=== PATIENT | female | born 1970 | race Caucasian/White ===

== ENCOUNTER 2018-05-06 01:51 | Outpatient (CLI) | payer MEDICAID, SELFPAY ==
[2018-05-06 11:26] LABS: Prothrombin Time 45.2 sec (9.3-10.8)
[2018-05-06 11:53] LABS: INR 4.9 (1.0-3.5)
== END 2018-05-06 02:11 ==
PROVIDERS: PCP Family Medicine; Visit Provider Family Medicine
DX: I82.811 Embolism and thrombosis of superficial veins of right lower extremity (principal); Z79.01 Long term (current) use of anticoagulants
CPT/HCPCS: 36415; 85610

== ENCOUNTER 2018-05-09 12:10 | Outpatient (CLI) | payer MEDICAID, SELFPAY ==
[2018-05-09 13:24] LABS: INR 1.5 (1.0-3.5); Prothrombin Time 14.4 sec (9.3-10.8)
== END 2018-05-09 12:30 ==
PROVIDERS: PCP Family Medicine; Visit Provider Family Medicine
DX: I82.811 Embolism and thrombosis of superficial veins of right lower extremity (principal); Z79.01 Long term (current) use of anticoagulants
CPT/HCPCS: 85610

== ENCOUNTER 2018-08-22 19:21 | Emergency (ER) | payer MEDICAID, SELFPAY ==
[2018-08-22] VITALS (21 sets, daily range): BP systolic 122–189; BP diastolic 54–88; PULSE 66–82; RESP 11–35; TEMP 37; O2SAT 93–98
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
[2018-08-22] MEDS: HYDROmorphone 2 MG/ML VIAL 1 MG IV (20:12)
[2018-08-22] MEDS: Normal Saline Flush 10 ML SYR IVP (20:13)
[2018-08-22] MEDS: Normal Saline 1,000 ML 125 ML IV (20:13)
[2018-08-22 20:27] LABS: Abs Immature Grans 0.02 k/cumm (0.0-0.09); Absolute Basophil Count 0.02 k/cumm (0.0-0.2); Absolute Eosinophil Count 0.12 k/cumm (0.0-0.7); Absolute Lymphocyte Count 2.42 k/cumm (1.2-3.4); Absolute Monocyte Count 0.44 k/cumm (0.11-0.7); Absolute Neutrophil Count 6.33 k/cumm (1.2-6.7); Basophils % 0.2; Eosinophils % 1.3; HCT 40.1 % (36.0-46.0); HGB 13.7 g/dL (12.0-15.5); Immature Grans % 0.2; Lymphocytes % 25.9; Mean Corp. HGB Concentration 34.2 g/dL (32.0-36.0); Mean Corpuscular Hemoglobin 30.7 pg (27.0-33.0); Mean Corpuscular Volume 89.9 fL (80-95); Mean Platelet Volume 10.7 fL (8.0-11.0); Monocytes % 4.7; Neutrophils % 67.7; Platelet Count 195 x1000/uL (130-400); RBC 4.46 m/cumm (4.00-5.20); RBC Distribution Width 13.6 % (11.7-14.6); White Blood Cell Count 9.35 k/cumm (4.4-10.8)
[2018-08-22 20:36] LABS: INR 2.8 (0.9-1.1)
[2018-08-22 20:38] LABS: ALT 19 U/L (12-78); AST 16 U/L (15-37); Albumin 3.5 g/dL (3.4-5.0); Alkaline Phosphatase 116 U/L (46-116); Anion Gap 10.6 mmol/L (3-11); BUN 11 mg/dL (7-18); Bilirubin, Total 0.3 mg/dL (0.2-1.0); CO2 26.4 mmol/L (21.0-32.0); Calcium 8.7 mg/dL (8.5-10.1); Chloride 103 mmol/L (98-107); Glucose 95 mg/dL (70-100); Potassium 3.6 mmol/L (3.5-5.1); Sodium 140 mmol/L (136-145); Total Protein 7.5 g/dL (6.4-8.2)
[2018-08-22 20:42] LABS: Troponin I < 0.02 ng/mL (0.00-0.06)
[2018-08-22 20:52] LABS: D-Dimer 96 ng/mlFEU (<500)
--- NOTE | 2018-08-22 20:57 | DI.CT_ITS ---
SYMPTOM/DIAGNOSIS: RT ARM PAIN, H/O ARTERY STENT, SUBCLAV, ? VENOUS RIGHT ARM CT AND CTA THORAX: CT angiography was performed with multi slice acquisition and multi planar and 3D reconstruction. There is no evidence of pulmonary embolism or aortic dissection. There is a right subclavian vein stent. The exam was performed during the arterial phase and the patency of the stent could not be evaluated. The stent appears to be compressed between the first rib and the clavicle. There is mild underlying emphysema and dependent changes in the lungs. There is no evidence of infiltrate, pleural or pericardial effusion. The heart size is normal. No adenopathy or pulmonary nodules are identified. Degenerative changes are seen in the spine. IMPRESSION: No evidence of pulmonary embolism. There is a right subclavian vein stent which appears compressed between the first rib and clavicle. Ultrasound could be performed for further evaluation of patency of the stent.
[2018-08-22] MEDS: Omnipaque 350 MG/ML 100 ML BTL IJ (22:00)
--- NOTE | 2018-08-22 22:26 | DI.VRAD_ITS ---
EXAM: CT Right Angiography Chest With Contrast EXAM DATE/TIME: 08/22/2018 9:24 PM CLINICAL HISTORY: 47 years old, female; Pain; Upper arm; Right; Prior surgery; Surgery date: 6+ months; Surgery type: Subclavian stent about 5 years ago; Patient HX: Right arm pain HX of (? Venous) artery stent subclavian TECHNIQUE: Right Axial computed tomographic angiography images of the chest with intravenous contrast using CT angiography protocol. Coronal and sagittal reformatted images were created and reviewed. CONTRAST: 100 ml of Omnipaque 350 administered intravenously. COMPARISON: CT CHEST WITHOUT/WITH CONTRAST 01/26/2012 5:46 PM FINDINGS: Pulmonary arteries: No filling defect to suggest pulmonary embolism. Aorta: Normal. No aortic aneurysm. No aortic dissection. Great vessels off aortic arch: There is a right subclavian vein stent, noting that the arterial timing of the contrast bolus is not optimal for evaluation of patency of the stent. The stent is compressed between the first rib, which is a cervical rib, and the clavicle. Lungs: There is paraseptal emphysema dependent changes. No focal pulmonary consolidation. Mild mosaic attenuation in the lung bases, left greater than right likely represents air trapping. Pleural space: Normal. No pneumothorax. No pleural effusion. Heart: Normal. No cardiomegaly. No pericardial effusion. Lymph nodes: Unremarkable. No enlarged lymph nodes. Bones/joints: The patient's right arm and head were included within the [id number]. Mild multilevel degenerative changes of the spine. Soft tissues: Unremarkable. IMPRESSION: 1. No evidence of pulmonary embolism. 2. Right subclavian vein stent compressed between the first rib and clavicle, noting that evaluation for patency of the lumen is limited on this study. Ultrasound may provide further evaluation for patency if clinically warranted. 3. Mild paraseptal emphysema and air-trapping in the lung bases. No focal pulmonary consolidation. Dictated and Authenticated by: Luana Plaza MD. Ordering:AUGUSTO Courtney MD
--- NOTE | 2018-08-22 22:39 | DI.VRAD_ITS ---
Addendum created by Luana Plaza MD on 08/22/2018 10:39:28 PM EST Findings were discussed with JOSE ERVIN at 08/22/2018 10:36 PM EST. This addendum also serves to add additional findings in the right upper extremity arterial runoff portion of the study. There is no evidence of right upper extremity arterial occlusion, critical stenosis, or dissection. The right upper extremity soft tissues and osseous structures are within normal limits. Dr. Ervin states that the patient has a normal vascular exam and negative d-dimer. The remainder of the findings and impression remain unchanged. Initial report created on 08/22/2018 10:26:21 PM EST EXAM: CT Right Angiography Chest With Contrast EXAM DATE/TIME: 08/22/2018 9:24 PM CLINICAL HISTORY: 47 years old, female; Pain; Upper arm; Right; Prior surgery; Surgery date: 6+ months; Surgery type: Subclavian stent about 5 years ago; Patient HX: Right arm pain HX of (? Venous) artery stent subclavian TECHNIQUE: Right Axial computed tomographic angiography images of the chest with intravenous contrast using CT angiography protocol. Coronal and sagittal reformatted images were created and reviewed. CONTRAST: 100 ml of Omnipaque 350 administered intravenously. COMPARISON: CT CHEST WITHOUT/WITH CONTRAST 01/26/2012 5:46 PM FINDINGS: Pulmonary arteries: No filling defect to suggest pulmonary embolism. Aorta: Normal. No aortic aneurysm. No aortic dissection. Great vessels off aortic arch: There is a right subclavian vein stent, noting that the arterial timing of the contrast bolus is not optimal for evaluation of patency of the stent. The stent is compressed between the first rib, which is a cervical rib, and the clavicle. Lungs: There is paraseptal emphysema dependent changes. No focal pulmonary consolidation. Mild mosaic attenuation in the lung bases, left greater than right likely represents air trapping. Pleural space: Normal. No pneumothorax. No pleural effusion. Heart: Normal. No cardiomegaly. No pericardial effusion. Lymph nodes: Unremarkable. No enlarged lymph nodes. Bones/joints: The patient's right arm and head were included within the [id number]. Mild multilevel degenerative changes of the spine. Soft tissues: Unremarkable. IMPRESSION: 1. No evidence of pulmonary embolism. 2. Right subclavian vein stent compressed between the first rib and clavicle, noting that evaluation for patency of the lumen is limited on this study. Ultrasound may provide further evaluation for patency if clinically warranted. 3. Mild paraseptal emphysema and air-trapping in the lung bases. No focal pulmonary consolidation. Dictated and Authenticated by: Luana Plaza MD. Ordering:AUGUSTO Courtney MD
[2018-08-22] MEDS: Ketorolac 30 MG/ML VIAL 7.5 MG IVP (22:47)
[2018-08-23] VITALS: PULSE 64; RESP 14; O2SAT 98
[2018-08-23 00:09] LABS: Troponin I < 0.02 ng/mL (0.00-0.06)
[2018-08-23 00:10] VITALS: PULSE 66; RESP 17; O2SAT 99
[2018-08-23 00:20] VITALS: PULSE 65; RESP 15; O2SAT 99
[2018-08-23 00:24] VITALS: BP 157/69; PULSE 63
[2018-08-23 00:37] VITALS: TEMP 36.6
== END 2018-08-23 00:45 | disposition home or self-care (01) ==
PROVIDERS: Emergency Medicine; Emergency Provider Student in an Organized Health Care Education/Training Program; PCP Family Medicine
DX: M79.601 Pain in right arm (principal); R07.9 Chest pain, unspecified; R20.2 Paresthesia of skin; Z95.828 Presence of other vascular implants and grafts; Z86.718 Personal history of other venous thrombosis and embolism; Z79.01 Long term (current) use of anticoagulants
CPT/HCPCS: 36415; 71275; 80053; 93005; 96361; 96374; 96375; 99285; 83735; 84484; 85025; 85379; 85610; 93010; J1885; J3490

== ENCOUNTER 2018-10-07 02:19 | Outpatient (CLI) | payer MEDICAID, SELFPAY ==
[2018-10-07 11:07] LABS: INR 1.6 (0.9-1.1); Prothrombin Time 16.4 sec (9.3-11.0)
== END 2018-10-07 02:39 ==
PROVIDERS: PCP Family Medicine; Visit Provider Family Medicine
DX: I82.811 Embolism and thrombosis of superficial veins of right lower extremity (principal); Z79.01 Long term (current) use of anticoagulants
CPT/HCPCS: 36415; 85610

== ENCOUNTER 2018-10-26 11:09 | Outpatient (CLI) | payer MEDICAID, SELFPAY ==
--- NOTE | 2018-10-26 11:03 | DI.RAD_ITS ---
SYMPTOMS/DIAGNOSIS: PAIN RIGHT KNEE: AP and lateral projections of the right knee reveal no bony, joint or soft tissue abnormality.
== END 2018-10-26 11:29 ==
PROVIDERS: PCP Family Medicine; Visit Provider Physician Assistant Surgical
DX: M25.561 Pain in right knee (principal)
CPT/HCPCS: 73560

== ENCOUNTER 2019-02-15 11:32 | Outpatient (CLI) | payer MEDICAID, SELFPAY ==
--- NOTE | 2019-02-15 12:30 | DI.US_ITS ---
SYMPTOM/DIAGNOSIS: PAIN WITH LIFTING 5 DAYS AGO, LT ING PAIN, LLQ PAIN R10.32 LEFT INGUINAL ULTRASOUND: Sonographic evaluation of the left inguinal region was performed. No sonographic evidence to suggest a left inguinal hernia are seen. There is lymph node seen in the left inguinal region. They have a benign appearance with hyperechoic hilum. The largest measures 2.1 x 0.7 x 1.3 cm. IMPRESSION: No sonographic findings to suggest a left inguinal hernia.
== END 2019-02-15 11:52 ==
PROVIDERS: PCP Family Medicine; Visit Provider Family Medicine
DX: R10.32 Left lower quadrant pain (principal)
CPT/HCPCS: 76857

== ENCOUNTER 2019-08-27 17:35 | Emergency (ER) | payer MEDICAID, SELFPAY ==
[2019-08-27] VITALS (36 sets, daily range): BP systolic 118–233; BP diastolic 62–212; PULSE 64–110; RESP 11–39; TEMP 36.5–37.4; O2SAT 91–98
[2019-08-27] MEDS: Aspirin 81 MG CHEW CH (18:02)
[2019-08-27] MEDS: Ondansetron 4 MG/2 ML VIAL IVP (18:11)
[2019-08-27] MEDS: LORazepam 2 MG/ML VIAL (18:13)
--- NOTE | 2019-08-27 18:19 | DI.RAD_ITS ---
EXAM: XR PORTABLE CHEST AP INDICATION: Chest pain. COMPARISON: CHEST 2 VIEWS PA,LAT from 12/15/2012 TECHNIQUE: 2D digital imaging was performed. FINDINGS: The heart size and pulmonary vasculature are within normal limits. The lungs are clear. There is no pleural effusion or pneumothorax. There is again seen a stent in the region of the right subclavian vessels. IMPRESSION: No acute pulmonary process.
[2019-08-27 18:22] LABS: Abs Immature Grans 0.03 k/cumm (0.0-0.09); Absolute Basophil Count 0.02 k/cumm (0.0-0.2); Absolute Lymphocyte Count 2.33 k/cumm (1.2-3.4); Basophils % 0.1; Eosinophils % 0.1; HCT 43.6 % (36.0-46.0); HGB 15.6 g/dL (12.0-15.5); Immature Grans % 0.2 %; Lymphocytes % 14.2; Mean Corp. HGB Concentration 35.8 g/dL (32.0-36.0); Mean Corpuscular Hemoglobin 31.5 pg (27.0-33.0); Mean Corpuscular Volume 88.1 fL (80-95); Neutrophils % 81.4; Platelet Count 254 x1000/uL (130-400); RBC 4.95 m/cumm (4.00-5.20); RBC Distribution Width 13.6 % (11.7-14.6); White Blood Cell Count 16.44 k/cumm (4.4-10.8)
[2019-08-27 18:23] LABS: Absolute Eosinophil Count 0.02 k/cumm (0.0-0.7); Absolute Monocyte Count 0.66 k/cumm (0.11-0.7); Absolute Neutrophil Count 13.38 k/cumm (1.2-6.7)
--- NOTE | 2019-08-27 18:23 | DI.VRAD_ITS ---
PROCEDURE INFORMATION: Exam: XR Chest, 1 View Exam date and time: 08/27/2019 18:15 Age: 48 years old Clinical indication: Chest pain; Type not specified TECHNIQUE: Imaging protocol: XR of the chest Views: 1 view. COMPARISON: CR CHEST 2 VIEWS PA,LAT 12/15/2012 22:07 FINDINGS: Lungs: No consolidation. Pleural space: No significant pleural effusion. No pneumothorax. Heart/Mediastinum: No cardiomegaly. Vasculature: Vascular stent again seen in the right subclavian region. Bones/joints: No acute fracture. Benign-appearing chronic osteolysis distal left clavicle. IMPRESSION: Negative portable chest. Dictated and Authenticated by: Rosalina Alvarez MD. Ordering:DEWAYNE Laurent MD
[2019-08-27 18:36] LABS: ALT 20 U/L (14-59); AST 16 U/L (15-37); Albumin 4.1 g/dL (3.4-5.0); Alkaline Phosphatase 102 U/L (46-116); Anion Gap 14.9 mmol/L (3-11); BUN 7 mg/dL (7-18); Bilirubin, Total 0.4 mg/dL (0.2-1.0); CO2 21.1 mmol/L (21.0-32.0); CREATININE 0.83 mg/dL (0.55-1.02); Calcium 9.5 mg/dL (8.5-10.1); Chloride 104 mmol/L (98-107); Glucose 110 mg/dL (74-106); Magnesium 1.7 mg/dL (1.8-2.4); Potassium 3.8 mmol/L (3.5-5.1); Sodium 140 mmol/L (136-145); Troponin I < 0.05 ng/Ml (<0.06)
[2019-08-27 19:07] LABS: D-Dimer 117 ng/mlFEU (<500)
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
[2019-08-27] MEDS: Omnipaque 350 MG/ML 100 ML BTL IJ (19:48)
--- NOTE | 2019-08-27 19:53 | DI.CT_ITS ---
EXAM: CT THORAX CTA CLINICAL HISTORY: Left sided chest pain. TECHNIQUE: Imaging Protocol: Axial CT angiography was performed with multi-slice acquisition and mu lti-planar and/or 3D reconstructions. CONTRAST MATERIAL: Intravenous: Omnipaque 350 Contrast volume:structured data in ml COMPARISON: CT THORAX CTA from 08/22/2018 FINDINGS: Pulmonary Arteries: No filling defects are seen in the central pulmonary arteries to suggest pulmonar y embolic disease. Tracheobronchial tree: Patent where visualized. Mediastinum and Lary: No dominant adenopathy or fluid collection. Pulmonary parenchyma: No consolidation or dominant measurable mass. No architectural distortion. Pleura: No effusion or pneumothorax. Heart: The heart is not dilated. No coronary artery calcifications are seen. No evidence of right hea rt strain. Aorta: Thoracic aorta non-dilated. No aneurysm or dissection. Upper abdomen: Unremarkable. Bones: Normal. Tubes, Catheters, and Lines: There is again seen a stent in the right subclavian vein. It appears un changed. IMPRESSION: No definite pulmonary embolism, thoracic aortic dissection or aneurysm. Please see the above discuss ion for complete details. DATA REPOSITORY: All CT scans at this facility are submitted to the National Radiology Data Registry (NRDR) Dose Index Registry (DIR) with the [employer] (ACR). RADIATION OPTIMIZATION: All CT scans at this facility use at least one of these dose optimization te chniques: automated exposure control; mA and/or kV adjustment per patient size (includes targeted exa ms where dose is matched to clinical indication); or iterative reconstruction.
--- NOTE | 2019-08-27 20:09 | DI.VRAD_ITS ---
PROCEDURE INFORMATION: Exam: CT Angiography Chest With Contrast Exam date and time: 08/27/2019 19:36 Age: 48 years old Clinical indication: Left-sided chest pain; Prior surgery; Surgery date: 6+ months; Surgery type: Stent for thrombus RT subclavien vein 2011; Patient HX: Left sided chest pain TECHNIQUE: Imaging protocol: Computed tomographic angiography of the chest with intravenous contrast. 3D rendering: MIP and/or 3D reconstructed images were created by the technologist. Radiation optimization: All CT scans at this facility use at least one of these dose optimization techniques: automated exposure control; mA and/or kV adjustment per patient size (includes targeted exams where dose is matched to clinical indication); or iterative reconstruction. Contrast material: OMNI 350; Contrast volume: 64 ml; Contrast route: IV; COMPARISON: CT THORAX CTA 08/22/2018 21:22 FINDINGS: Pulmonary arteries: The pulmonary artery contrast bolus is suboptimal for assessment for filling defects. The main and proximal lobar pulmonary arteries are patent. Great vessels off aortic arch: A right subclavian venous stent is poorly seen however appears compressed between the clavicle and the 1st rib probably similar to the previous study. Aorta: No aortic aneurysm. No aortic dissection. Lungs: There are a few very tiny pulmonary nodules which are statistically likely benign. Follow-up as per institutional protocol. No airspace consolidation. Pleural space: No pneumothorax. No pleural effusion. Heart: No cardiomegaly. No pericardial effusion. Lymph nodes: No enlarged lymph nodes. Bones/joints: No acute fracture. Soft tissues: No suspicious lesions. IMPRESSION: No acute findings. Limited assessment for pulmonary artery emboli. Dictated and Authenticated by: Rosalina Alvarez MD. Ordering:DEWAYNE Laurent MD
[2019-08-27 20:48] LABS: HCT 38.1 % (36.0-46.0); HGB 13.2 g/dL (12.0-15.5); Mean Corp. HGB Concentration 34.6 g/dL (32.0-36.0); Mean Corpuscular Hemoglobin 30.9 pg (27.0-33.0); Mean Corpuscular Volume 89.2 fL (80-95); Mean Platelet Volume 10.1 fL (8.0-11.0); Platelet Count 170 x1000/uL (130-400); RBC 4.27 m/cumm (4.00-5.20); RBC Distribution Width 13.4 % (11.7-14.6); White Blood Cell Count 10.38 k/cumm (4.4-10.8)
[2019-08-27 21:02] LABS: Troponin I < 0.05 ng/Ml (<0.06)
== END 2019-08-27 21:45 | disposition home or self-care (01) ==
PROVIDERS: Emergency Provider Registered Nurse Emergency; PCP Family Medicine
DX: R07.9 Chest pain, unspecified (principal); F43.8 Other reactions to severe stress; R11.2 Nausea with vomiting, unspecified; Z63.9 Problem related to primary support group, unspecified
CPT/HCPCS: 36415; 71275; 80053; 85027; 93005; 99285; 71045; 83735; 84484; 85025; 85379; 93010; 99284; J2060; J2405; J3490

== ENCOUNTER 2019-09-14 00:27 | Outpatient (CLI) | payer MEDICAID, SELFPAY ==
--- NOTE | 2019-09-14 | ETT_ITS ---
APPROVED REPORT Exam: Exercise Treadmill Patient Location: Out-Patient Room/Bed: Stress Nurse: Alisha Vallejo RN BMI: 31.24 Baseline Rhythm: Sinus Rhythm Indications: Chest Pain Medical History Cardiac Medications: Aspirin. Magnesium. Warfarin., Allergies: Codeine. Penicillins. Topiramate. Cardiac Risk Factors: FHX of CAD, Smoking, Asthma Pretest Chest Pain Characteristics: Non-exertional Chest pain Exercise History: Physically active Physical Disabilities: Right Knee pain Lung Sounds: Clear to auscultation Heart Sounds: Regular Stress Test Details Test: Exercise stress testing was performed using a Ramy protocol. Nuclear Acquisition: Rest Tc-99m/Stress Tc-99m 1 day Rest Stress HR Resting HR Supine: 68 bpm Max Heart Rate (APMHR): 172 bpm Resting HR Standin bpm Target HR (85% APMHR): 146 bpm Max HR Achieved: 158 bpm % of APMHR: 91 HR response to stress: Normal HR response to stress BP Resting BP Supine: 130/70 mmHg Resting BP Standin/74 mmHg Max BP: 190/80 mmHg Recovery BP: 130/76 mmHg BP response to stress: Normal blood pressure response to stress. ECG Resting ECG: Sinus Rhythm Stress ECG: Sinus Tachycardia ST Change: No significant ST segment changes Comment: Rare pvc. Recovery ECG: Sinus Rhythm Recovery ST Change: No significant ST segment changes Clinical Reason for Termination: Right knee pain. Stress Symptoms: Chest pain, General Fatigue Exercise duration: 6 min41 sec Highest Stage Reached: Stage 2: 2.5 mph at 12% grade. Exercise capacity: 8.06 METs Functional Capacity: Average Capacity Stress ECG Conclusion 1. Good exercise tolerance of 8.06 METS limited by fatigue. 2. Normal heart rate and blood pressure response to exercise 3. Patient achieved 91% of predicted heart rate for age. Electrocardiographically the test was negat courtney for myocardial ischemia. There were no significant dysrhythmias Protocol Used: Ramy Protocol Stress Test Summary STAGE Time (mins) Speed (mph) Grade (%) HR BP SYMPTOMS METS Supine 68 130/70 Standing 75 132/74 1 3 1.7 10 114 150/80 4.6 2 6 2.5 12 138 162/80 7 3 9 3.4 14 152 10.2 1 min recovery 108 190/80 3 min recovery 74 140/80 6 min recovery 73 130/76
== END 2019-09-14 00:47 ==
PROVIDERS: PCP Family Medicine; Visit Provider Registered Nurse Emergency
DX: R07.9 Chest pain, unspecified (principal); J45.909 Unspecified asthma, uncomplicated; F17.200 Nicotine dependence, unspecified, uncomplicated
CPT/HCPCS: 93017

== ENCOUNTER 2020-12-16 21:14 | Emergency (ER) | payer MEDICAID, SELFPAY ==
[2020-12-16] VITALS (21 sets, daily range): BP systolic 108–132; BP diastolic 56–95; PULSE 74–119; RESP 13–28; O2SAT 89–100
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
--- NOTE | 2020-12-16 21:45 | RT.EKG_ITS ---
APPROVED REPORT Exam: Resting ECG Reason for Exam: N/V Patient Location: E HR:77 bpm ECG Measurements Heart Rate [address] 146 P 76 QRSd 80 QRS 73 QT 397 T 53 QTc 451 Conclusion Sinus rhythm...normal P axis, V-rate 60- 99
[2020-12-16] MEDS: LORazepam 2 MG/ML VIAL 1 MG IVP (22:02)
[2020-12-16] MEDS: Normal Saline 1,000 ML 1000 ML IV (22:02)
[2020-12-16] MEDS: Pantoprazole 40 MG VIAL IVP (22:03)
[2020-12-16] MEDS: Ondansetron O.D.T. 4 MG TABEF PO (22:03)
[2020-12-16 22:40] LABS: Abs Immature Grans 0.04 10^3/uL (0.0-0.06); Absolute Basophil Count 0.03 10^3/uL (0.0-0.2); Absolute Eosinophil Count 0.07 10^3/uL (0.0-0.7); Absolute Lymphocyte Count 3.04 10^3/uL (1.2-3.4); Absolute Monocyte Count 0.57 10^3/uL (0.1-0.8); Absolute Neutrophil Count 6.28 10^3/uL (1.2-6.7); Basophils % 0.3; Eosinophils % 0.7; HCT 45.1 % (36.0-46.0); HGB 15.5 g/dL (11.2-15.7); Immature Grans % 0.4; Lymphocytes % 30.3; MCH 30.8 pg (27.0-33.0); MCHC 34.4 % (32.0-36.0); MCV 89.7 fL (80-95); MPV 11.3 fL (8.0-11.0); Monocytes % 5.7; Neutrophils % 62.6; Nucleated RBC 0 %; Platelet Count 250 10^3/uL (130-400); RBC 5.03 10^6/uL (3.93-5.22); RDW 12.4 % (11.7-14.6); RDW-SD 40.8 fL; WBC 10.03 10^3/uL (4.4-10.8)
[2020-12-16 22:55] LABS: Prothrombin Time 10.3 sec (9.3-11.0)
[2020-12-16 23:00] LABS: ALT 26 U/L (14-59); AST 20 U/L (15-37); Albumin 4.1 g/dL (3.4-5.0); Alkaline Phosphatase 94 U/L (46-116); Anion Gap 13.4 mmol/L (3-11); BUN 8 mg/dL (7-18); Bilirubin, Total 0.4 mg/dL (0.2-1.0); CO2 23.6 mmol/L (21.0-32.0); Calcium 9.3 mg/dL (8.5-10.1); Chloride 108 mmol/L (98-107); Estimated GFR 58.69 (mL/min/1.73m2); Glucose 119 mg/dL (74-106); Lipase 173 U/L (73-393); Potassium 3.7 mmol/L (3.5-5.1); Sodium 145 mmol/L (136-145)
--- NOTE | 2020-12-16 23:00 | DI.CT_ITS ---
Exam(s) CT ABDOMEN PELVIS CTA EXAM: CT ABDOMEN PELVIS CTA CLINICAL HISTORY: sudden onset of pain, hx of DVT. TECHNIQUE: Imaging Protocol: Axial CT angiography was performed with multi-slice acquisition and m ulti-planar and/or 3D reconstructions. CONTRAST MATERIAL: Intravenous: Omnipaque 350 Contrast volume:100 ml Oral: / no COMPARISON: CT CT THORAX CTA from 08/27/2019 FINDINGS: Vascular Structures: Inferior mesenteric artery not seen. Celiac [place]/SMA: No evidence of stenosis. Renal Arteries: No evidence of stenosis. There is a single renal artery perfusing each kidney. Aorta: No aneurysm. No dissection. Minimal atherosclerotic changes distally. Pelvis: Iliac Arteries: No evidence of stenosis. Common Femoral Arteries: No evidence of stenosis. Soft Tissues: Lung bases:Normal. Liver: Normal density. No measurable mass. Gallbladder and biliary tract: No radiodense calculus or dilation. Reproductive: Retroverted uterus. Pancreas: Normal density, no abnormal calcifications or inflammatory process. Spleen: Normal. Kidneys: Normal size, contour and axis. No radiodense stones or obstructive uropathy. No masses seen. Adrenal glands: No masses seen. Bladder: Symmetric distention, no gross wall thickening. Bowel: No obstruction or bowel wall thickening. Peritoneal cavity: No ascites, collection or mesenteric inflammatory response. Bones: Within normal limits. Lymph nodes: Within normal limits. IMPRESSION: Mild atherosclerotic changes in the lower abdominal aorta. No evidence of mesenteric ischemia or oth er acute abnormality. RADIATION DOSE DELIVERED: 1,363.49mGy.cm Total DLP DATA REPOSITORY: All CT scans at this facility are submitted to the National Radiology Data Registry (NRDR) Dose Index Registry (DIR) with the [employer] (ACR). RADIATION OPTIMIZATION: All CT scans at this facility use at least one of these dose optimization te chniques: automated exposure control; mA and/or kV adjustment per patient size (includes targeted exa ms where dose is matched to clinical indication); or iterative reconstruction.
[2020-12-16 23:01] LABS: ETHANOL BLOOD < 3.0 mg/dL (<3); Troponin I < 0.05 ng/mL (<0.06)
[2020-12-16] MEDS: Omnipaque 350 MG/ML 100 ML BTL IJ (23:23)
[2020-12-16] MEDS: Normal Saline - Diluent 50 ML VIAL IV (23:51)
[2020-12-16] MEDS: Normal Saline Flush 10 ML SYR IVP (23:52)
[2020-12-16] MEDS: Lactated Ringers 1,000 ML 1000 ML IV (23:53)
[2020-12-17] VITALS (12 sets, daily range): BP systolic 118–122; BP diastolic 57–69; PULSE 73–82; RESP 15–26; O2SAT 93–98
--- NOTE | 2020-12-17 00:48 | DI.VRAD_ITS ---
Addendum created by Octavio Son DO on 12/17/2020 12:58:26 AM EDT: Case discussed with Dr. Marti at approximately 12:55 a.m. on December 17. Findings regarding inferior mesenteric artery clarified. Initial report created on 12/17/2020 12:48:09 AM EDT: PROCEDURE INFORMATION: Exam: CTA Abdomen and Pelvis With Contrast Exam date and time: 12/16/2020 11:10 PM Age: 50 years old Clinical indication: Abdominal pain; Generalized; Prior surgery; Surgery date: 6+ months; Surgery type: Apendectomy, tubal ligation and bso; Patient HX: Sudden onset of pain, HX of dvt; Additional info: Mesenteric ischemia protocol per provider TECHNIQUE: Imaging protocol: Computed tomographic angiography of the abdomen and pelvis with contrast material. 3D rendering (Not supervised by radiologist): MIP and/or 3D reconstructed images were created by the technologist. Radiation optimization: All CT scans at this facility use at least one of these dose optimization techniques: automated exposure control; mA and/or kV adjustment per patient size (includes targeted exams where dose is matched to clinical indication); or iterative reconstruction. Contrast material: OMNIPAQUE 350; Contrast volume: 100 ml; Contrast route: INTRAVENOUS (IV); COMPARISON: No relevant prior studies available. FINDINGS: Aorta: No aortic aneurysm or dissection. Celiac trunk and mesenteric arteries: No occlusion or significant stenosis in celiac axis or superior mesenteric artery. Opacified inferior mesenteric artery not identified. Renal arteries: No occlusion or significant stenosis. Right iliac arteries: No occlusion or significant stenosis. Left iliac arteries: No occlusion or significant stenosis. Liver: No mass. No portal venous gas. Gallbladder and bile ducts: Unremarkable. No calcified stones. No ductal dilation. Pancreas: Unremarkable. No mass. No ductal dilation. Spleen: Unremarkable. No splenomegaly. Adrenal glands: Unremarkable. No mass. Kidneys and ureters: Unremarkable. No solid mass. No hydronephrosis. Stomach and bowel: No dilated loops of small bowel or colonic dilatation. No pneumatosis. Appendix: Prior appendectomy. Intraperitoneal space: No free intraperitoneal gas. No ascites. Lymph nodes: Unremarkable. No enlarged lymph nodes. Urinary bladder: Unremarkable. No mass. Reproductive: Retroverted uterus. No ovaries demonstrated. Bones/joints: The spine demonstrates mild degenerative changes at multiple levels. Soft tissues: There is an uncomplicated fat-containing umbilical hernia. IMPRESSION: 1. No aortic aneurysm or dissection. 2. No mesenteric, renal or iliac artery stenoses. 3. Inferior mesenteric artery has not formed or is occluded. 4. Retroverted uterus. Dictated and Authenticated by: Octavio Son MD. Ordering:SILVANO Galdamez MD
--- NOTE | 2020-12-22 18:10 | NUR.NOTE ---
Boyfriend called stating that when she was in the ER Dr Marti called in a prescription for prevacid for her and when they called to check the pharmacy told them they did not have it. He states She has bad pain--per ER chart a RX for Prevacid was faxed to [facility] in [place]. Pharmacies are closed now --can buy Prevacid OTC or if her pain is worsening then she should come to the ER for an exam. Verbalizes understanding and will talk it over with DonParising Note:
== END 2020-12-17 01:50 | disposition home or self-care (01) ==
PROVIDERS: Physician Assistant; Emergency Provider Student in an Organized Health Care Education/Training Program; PCP Nurse Practitioner Family
DX: R11.2 Nausea with vomiting, unspecified (principal); Z91.14 Patient's other noncompliance with medication regimen
CPT/HCPCS: 36415; 80053; 83690; 93005; 96361; 96374; 96375; 99285; 74174; 80320; 83605; 83735; 84484; 85025; 85610; 85730; 93010; 99284; J2060; J3490

== ENCOUNTER 2020-12-23 10:44 | Emergency (ER) | payer MEDICAID, SELFPAY ==
[2020-12-23] VITALS (35 sets, daily range): BP systolic 100–233; BP diastolic 29–197; PULSE 70–126; RESP 11–27; TEMP 36.3; O2SAT 90–100
--- NOTE | 2020-12-23 10:45 | RT.EKG_ITS ---
APPROVED REPORT Exam: Resting ECG Reason for Exam: abdominal pain Patient Location: E HR:111 bpm ECG Measurements Heart Rate 111 AXIS ID 118 P 85 QRSd 79 QRS 75 QT 319 T 44 QTc 434 Conclusion Sinus tachycardia...rate> 99 Right atrial enlargement...P>0.25mV 2 lds or<-0.24mV aVR/aVL. No STEMI. I have reviewed and interpreted ECG and agree with software generated interpretation.
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
--- NOTE | 2020-12-23 11:18 | DI.CT_ITS ---
Exam(s) CT THORAX ABD/PEL CTA EXAM: CT THORAX ABD/PEL CTA CLINICAL HISTORY: epigastric pain, vomiting. TECHNIQUE: Imaging Protocol: Axial CT angiography was performed with multi-slice acquisition and m ulti-planar and/or 3D reconstructions. CONTRAST MATERIAL: Intravenous: Omnipaque 350 Contrast volume:100 mL Oral: No COMPARISON: CT CT ABDOMEN PELVIS CTA from 12/16/2020 FINDINGS: CHEST: Tracheobronchial tree: Patent where visualized. Pulmonary parenchyma: No consolidation or dominant measurable mass. No architectural distortion. Pulmonary Arteries: No evidence of filling defect to suggest pulmonary emboli. Mediastinum and Lary: No dominant adenopathy or fluid collection. Visualized thyroid: Unremarkable. Pleura: No effusion or pneumothorax. Heart: The heart is not dilated. No coronary artery calcifications are seen. No pericardial effusion. Aorta: Thoracic aorta non-dilated. Soft Tissues: Unremarkable. Bones: Degenerative changes in the thoracic and lumbar spine. ABDOMEN AND PELVIS: Abdomen: Celiac axis/mesenteric arteries: No evidence of occlusion or significant stenosis. Renal Arteries: No evidence of occlusion or significant stenosis. There is a single renal artery per fusing each kidney. Aorta: No evidence of occlusion or significant stenosis. No aneurysm or dissection. Mild atheroscl erosis. Pelvis: Iliac Arteries: No evidence of occlusion or significant stenosis. Mild atherosclerosis. Common Femoral Arteries: No evidence of occlusion or significant stenosis. ABDOMEN: Liver: There does appear to be decreased density of the liver suggesting fatty infiltration. No noemi urable mass. Portal, Superior Mesenteric, and Splenic Veins: Unremarkable. Gallbladder and Biliary Tract: No radiodense calculus or dilation. Pancreas: Normal density, no abnormal calcifications or inflammatory process. Spleen: Normal. Adrenals: No masses seen. Kidneys: Normal size, contour and axis. No radiodense stones or obstructive uropathy. No masses seen. Bowel: No evidence of obstruction. There is questionable thickening of the wall of the ascending and transverse colon. However, the bowel is not well distended and this may be artifactual. No pericol onic inflammatory changes are seen. No evidence of appendicitis. Few diverticula seen in the sigmoi d colon but no evidence of acute diverticulitis. Peritoneal Cavity: No ascites, collection or mesenteric inflammatory response. No free air. Lymph Nodes: Within normal limits. Bones: Unremarkable. Soft Tissues: Unremarkable. PELVIS: Bladder: Symmetric distention, no gross wall thickening. Reproductive Organs: Unremarkable as visualized. Lymph Nodes: Within normal limits. Bones: Within normal limits. IMPRESSION: 1. No acute pulmonary process. 2. No evidence of pulmonary embolus, thoracic aortic dissection or aneurysm. 3. No evidence of abdominal or pelvic arterial stenosis or aneurysm. 4. Question of thickening of the wall of the proximal colon. This may be artifactual due to underdis tention. No pericolonic inflammatory changes are seen. Early colitis or inflammatory bowel disease cannot be excluded. Please correlate clinically and follow-up as appropriate. RADIATION DOSE DELIVERED: 1,017mGy.cm Total DLP DATA REPOSITORY: All CT scans at this facility are submitted to the National Radiology Data Registry (NRDR) Dose Index Registry (DIR) with the [employer] (ACR). RADIATION OPTIMIZATION: All CT scans at this facility use at least one of these dose optimization te chniques: automated exposure control; mA and/or kV adjustment per patient size (includes targeted exa ms where dose is matched to clinical indication); or iterative reconstruction.
[2020-12-23 11:39] LABS: Abs Immature Grans 0.02 10^3/uL (0.0-0.06); Absolute Basophil Count 0.04 10^3/uL (0.0-0.2); Absolute Eosinophil Count 0.05 10^3/uL (0.0-0.7); Absolute Monocyte Count 0.45 10^3/uL (0.1-0.8); Absolute Neutrophil Count 7.15 10^3/uL (1.2-6.7); Basophils % 0.4; Eosinophils % 0.5; HCT 46.6 % (36.0-46.0); HGB 16.1 g/dL (11.2-15.7); Immature Grans % 0.2; Lymphocytes % 18.1; MCH 31.2 pg (27.0-33.0); MCHC 34.5 % (32.0-36.0); MCV 90.3 fL (80-95); MPV 10.9 fL (8.0-11.0); Monocytes % 4.8; Nucleated RBC 0 %; Platelet Count 238 10^3/uL (130-400); RBC 5.16 10^6/uL (3.93-5.22); RDW 12.5 % (11.7-14.6); RDW-SD 41.5 fL; WBC 9.41 10^3/uL (4.4-10.8)
[2020-12-23] MEDS: LORazepam 2 MG/ML VIAL 1 MG IVP (11:50)
[2020-12-23] MEDS: Ondansetron 4 MG/2 ML VIAL IVP (11:50)
[2020-12-23 11:52] LABS: PTT Activated 24.4 sec (21.0-27.5); Prothrombin Time 10.2 sec (9.3-11.0)
[2020-12-23 11:55] LABS: Lipase 50 U/L (73-393)
[2020-12-23] MEDS: Normal Saline 1,000 ML 1000 ML IV (11:56)
[2020-12-23] MEDS: FAMOTIDINE 20 MG/50 ML BAG 200 MG IVPB (11:57)
[2020-12-23 12:04] LABS: ALT 28 U/L (14-59); AST 17 U/L (15-37); Albumin 4.2 g/dL (3.4-5.0); Alkaline Phosphatase 101 U/L (46-116); Anion Gap 14.7 mmol/L (3-11); BUN 12 mg/dL (7-18); Bilirubin, Total 0.6 mg/dL (0.2-1.0); CO2 22.3 mmol/L (21.0-32.0); Calcium 9.6 mg/dL (8.5-10.1); Chloride 106 mmol/L (98-107); Estimated GFR 58.69 (mL/min/1.73m2); Glucose 101 mg/dL (74-106); Potassium 4.2 mmol/L (3.5-5.1); Sodium 143 mmol/L (136-145)
[2020-12-23 12:05] LABS: Troponin I < 0.05 ng/mL (<0.06)
[2020-12-23] MEDS: Omnipaque 350 MG/ML 100 ML BTL IV (12:42)
[2020-12-23] MEDS: Normal Saline - Diluent 50 ML VIAL IV (12:43)
[2020-12-23] MEDS: Normal Saline Flush 10 ML SYR IVP (12:44)
--- NOTE | 2020-12-23 14:16 | DI.VRAD_ITS ---
PROCEDURE INFORMATION: Exam: CTA Chest With Contrast Exam date and time: 12/23/2020 12:45 PM Age: 50 years old Clinical indication: Other: Epigastric pain, vomiting, R/O aaa, perf, gastritis, sbo TECHNIQUE: Imaging protocol: Computed tomographic angiography of the chest with contrast. 3D rendering (Not supervised by radiologist): MIP and/or 3D reconstructed images were created by the technologist. Radiation optimization: All CT scans at this facility use at least one of these dose optimization techniques: automated exposure control; mA and/or kV adjustment per patient size (includes targeted exams where dose is matched to clinical indication); or iterative reconstruction. Contrast material: OMNIPAQUE 350; Contrast volume: 100 ml; Contrast route: INTRAVENOUS (IV); COMPARISON: CT THORAX CTA 08/27/2019 7:53 PM FINDINGS: Pulmonary arteries: Normal. No pulmonary emboli. Aorta: Unremarkable. No aortic aneurysm. No aortic dissection. Lungs: Review of the lung windows shows minimal dependent subsegmental atelectasis. Pleural spaces: Unremarkable. No pneumothorax. No pleural effusion. Heart: Unremarkable. No cardiomegaly. No pericardial effusion. Lymph nodes: Unremarkable. No enlarged lymph nodes. Bones/joints: Unremarkable. No acute fracture. Soft tissues: Unremarkable. IMPRESSION: 1. No evidence of pulmonary embolism. 2. No evidence of aortic dissection or aneurysm. PROCEDURE INFORMATION: Exam: CTA Abdomen and Pelvis With Contrast Exam date and time: 12/23/2020 12:45 PM Age: 50 years old Clinical indication: Other: Epigastric pain, vomiting, R/O aaa, perf, gastritis, sbo TECHNIQUE: Imaging protocol: Computed tomographic angiography of the abdomen and pelvis with contrast material. 3D rendering (Not supervised by radiologist): MIP and/or 3D reconstructed images were created by the technologist. Radiation optimization: All CT scans at this facility use at least one of these dose optimization techniques: automated exposure control; mA and/or kV adjustment per patient size (includes targeted exams where dose is matched to clinical indication); or iterative reconstruction. Contrast material: OMNIPAQUE 350; Contrast volume: 100 ml; Contrast route: INTRAVENOUS (IV); COMPARISON: CT THORAX CTA 08/27/2019 7:53 PM FINDINGS: Aorta: No aortic aneurysm. No aortic dissection. Celiac trunk and mesenteric arteries: No occlusion or significant stenosis. Renal arteries: No occlusion or significant stenosis. Right iliac arteries: No occlusion or significant stenosis. Left iliac arteries: No occlusion or significant stenosis. Liver: The liver appears diffusely decreased in density. Gallbladder and bile ducts: Unremarkable. No calcified stones. No ductal dilation. Pancreas: Unremarkable. No mass. No ductal dilation. Spleen: Unremarkable. No splenomegaly. Adrenal glands: Unremarkable. No mass. Kidneys and ureters: Unremarkable. No solid mass. No hydronephrosis. Stomach and bowel: Diverticulosis is noted. No evidence of obstruction or diverticulitis. There is mild thickening of the wall of the ascending and transverse colon though it is not well distended. Appendix: No evidence of appendicitis. Intraperitoneal space: Unremarkable. No free air. No significant fluid collection. Lymph nodes: Unremarkable. No enlarged lymph nodes. Urinary bladder: Unremarkable. No mass. Reproductive: The uterus is retroverted and normal in appearance. No adnexal masses are seen. Bones/joints: No acute fracture. No dislocation. Soft tissues: Unremarkable. IMPRESSION: 1. Thickening of the wall of the colon. This may be artifact due to lack of distention. However, inflammatory bowel disease or other causes of colitis cannot be excluded. Follow-up with colonoscopy is advised to exclude any possibility of an underlying colonic lesion, if not done recently. 2. Fatty liver disease. 3. No evidence of arterial stenosis or aneurysm. Dictated and Authenticated by: Obed Mueller MD. Ordering:LOIS Garcia MD
[2020-12-23] MEDS: Lansoprazole 30 MG CAPCR 60 MG PO (15:01)
[2020-12-23] MEDS: Ondansetron O.D.T. 4 MG TABEF, 3 TABS/BTL PO (15:01)
--- NOTE | 2020-12-23 17:58 | NUR.NOTE ---
Nursing Note: faxed referral to surgical
== END 2020-12-23 15:15 | disposition home or self-care (01) ==
PROVIDERS: Emergency Provider Physician Assistant; PCP Nurse Practitioner Family
DX: R11.2 Nausea with vomiting, unspecified (principal); R10.13 Epigastric pain; R03.0 Elevated blood-pressure reading, without diagnosis of hypertension
CPT/HCPCS: 36415; 71275; 74177; 80053; 83690; 93005; 96361; 96365; 96375; 99285; 83735; 84484; 85025; 85610; 85730; 93010; J2060; J2405; J3490

== ENCOUNTER 2021-08-28 16:24 | Outpatient (CLI) | payer MEDICAID, SELFPAY ==
--- NOTE | 2021-08-28 09:00 | DI.RAD_ITS ---
Exam(s) XR FINGER LT RING EXAM: XR FINGER LT RING CLINICAL HISTORY: Trauma to left ring finger. S69.90XA INJURY TECHNIQUE: COMPARISON: CR LEFT HAND COMPLETE from 03/13/2015 FINDINGS: Three views were obtained. There is a nondisplaced fracture of the volar aspect of the base of the m iddle phalanx of the ring finger. There is associated soft tissue swelling. No other fracture seen. IMPRESSION: RADIATION DOSE DELIVERED: Total DLP
== END 2021-08-28 16:44 ==
PROVIDERS: PCP Nurse Practitioner Family; Visit Provider Nurse Practitioner Family
DX: S69.82XA Other specified injuries of left wrist, hand and finger(s), initial encounter (principal); M79.645 Pain in left finger(s); S62.655A Nondisplaced fracture of middle phalanx of left ring finger, initial encounter for closed fracture; M79.89 Other specified soft tissue disorders; X58.XXXA Exposure to other specified factors, initial encounter
CPT/HCPCS: 73140

== ENCOUNTER 2022-04-07 03:46 | Outpatient (CLI) | payer MEDICAID, SELFPAY ==
[2022-04-07 12:47] LABS: Anion Gap 7.2 mmol/L (3-11); BUN 15 mg/dL (7-18); CO2 25.8 mmol/L (21.0-32.0); CREATININE 0.9 mg/dL (0.55-1.02); Calcium 8.7 mg/dL (8.5-10.1); Chloride 106 mmol/L (98-107); Glucose 121 mg/dL (74-106); Potassium 4.1 mmol/L (3.5-5.1); Sodium 139 mmol/L (136-145)
== END 2022-04-07 03:47 | disposition home or self-care (01) ==
LOC: LOS 03:46
PROVIDERS: PCP Nurse Practitioner Family; Visit Provider Nurse Practitioner Family
DX: R11.2 Nausea with vomiting, unspecified (principal)
CPT/HCPCS: 36415; 80048

== ENCOUNTER 2022-04-13 09:44 | Day surgery (SDC) | payer MEDICAID, SELFPAY ==
[2022-04-13] MEDS: Tropicam./Phenyleph. (1/2.5%) 5 ML BTL OS ×3 (10:03→10:19)
[2022-04-13 10:11] VITALS: BP 156/78; PULSE 80; RESP 18; TEMP 36.6; O2SAT 98
--- NOTE | 2022-04-13 10:41 | ANES.PREOP_ITS ---
General Info Date of Service Date Performed: 04/13/22 Height: 5 ft Weight: 75.5 kg Body Mass Index (BMI): 32.5 Surgical Procedure: Operation Date: 04/13/22 11:25 Proposed Procedure Side Surgeon p Cataract Extraction with IOL Implant Left Teja Link MD Meds Allergies and Home Medications Allergies Allergy/AdvReac Type Severity Reaction Status Date / Time venom-honey bee Allergy Severe Anaphylaxsi Verified 04/13/22 09:41 [bee venom (honey bee)] s codeine [Codeine] Allergy Intermediate HIVES Verified 04/13/22 09:41 Penicillins Allergy Intermediate HIVES Verified 04/13/22 09:41 topiramate AdvReac PARESTHESIAS Verified 04/13/22 09:41 FEET MUSHROOMS Allergy Unknown Hives Uncoded 04/13/22 09:41 Home Medication Medication Instructions Recorded aspirin 81 mg tablet,delayed 81 mg PO DAILY 02/21/15 release (Aspir-) epinephrine 0.3 mg/0.3 mL 0.3 mg (0.3 mL) IM PRN 30 days #1 01/14/18 injection, auto-injector (EpiPen ea 2-Sebastián) magnesium oxide 500 mg tablet 1,000 mg PO BID #120 tabs 03/10/19 albuterol sulfate 90 mcg/actuation 2 puff inhalation QID #6.7 grams 12/17/20 aerosol inhaler (Proventil HFA) sucralfate 1 gram tablet (Carafate) 1 g PO BID #60 tabs 12/17/20 ondansetron 4 mg disintegrating 4 mg PO TID PRN nausea and 12/23/20 tablet vomiting #6 tabs warfarin 5 mg tablet 5 mg PO DIRECTED BY MD #120 tabs 09/04/21 oxybutynin chloride 5 mg tablet 5 mg PO BID #180 tabs 04/02/22 Current Visit Medications: Current Medications Generic Name Dose Route Start Last Admin Trade Name Freq PRN Reason Stop Dose Admin Acetaminophen 1,000 mg 04/13/22 06:00 Acetaminophen 500 Mg Tab PO Q4H PRN PRN Miscellaneous Medication 0 ml 04/13/22 06:00 Prednisolone 1%, Moxifloxacin 0.5%, Nepafenac 0.1% 5ml Btl OS DIRECTED MARIANELA Miscellaneous Medication 0 ml 04/13/22 06:00 04/13/22 10:19 Tropicam./Phenyleph. 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 Generalized anxiety disorder F41.1 Major depressive disorder F32.9 Migraine headache G43.909 Hyperlipidemia E78.5 Osteoarthritis M19.90 Periodontal disease K05.6 Nausea & vomiting R11.2 Noncompliance with medication regimen Z91.14 Finger injury S69.90XA Medical History Medical History Brachial vein thrombosis, 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) Cataract 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) History of tobacco use Right carpal tunnel syndrome repaired 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 Surgical History Surgical History History of bilateral tubal ligation History of carpal tunnel surgery of right wrist Hx of resection of rib (02/02/12) Right first 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 S/P LEEP of cervix S/P tonsillectomy and adenoidectomy S/P vascular surgery (02/02/12) Right subclavian vein stent Status post bilateral salpingo-oophorectomy (BSO) Tobacco Smoking/Tobacco Use Status: Current every day Tobacco Type: cigarettes and e- cigarettes Alcohol Alcohol Intake: never Substance Use Substance use: Occasionally Substance use type: marijuana Vital Signs and Lab Results Vital Signs Most Recent Vital Signs in EMR: Most Recent Vital Signs Temp Pulse Resp BP Pulse Ox 36.6 C 80 18 156/78 H 98 04/13/22 10:11 04/13/22 10:11 04/13/22 10:11 04/13/22 10:11 04/13/22 10:11 Lab Results Blood Type / Crossmatch: No Data to Display Complete Blood Count: No Data to Display Complete Metabolic Panel: Sodium Level 139 mmol/L (136-145) 04/07/22 08:22 Potassium Level 4.1 mmol/L (3.5-5.1) 04/07/22 08:22 Chloride Level 106 mmol/L (98-107) 04/07/22 08:22 Carbon Dioxide Level 25.8 mmol/L (21.0-32.0) 04/07/22 08:22 Blood Urea Nitrogen 15 mg/dL (7-18) 04/07/22 08:22 Creatinine 0.9 mg/dL (0.55-1.02) 04/07/22 08:22 Calcium Level 8.7 mg/dL (8.5-10.1) 04/07/22 08:22 Glucose Level 121 mg/dL (74-106) H 04/07/22 08:22 Liver Function Panel: No Data to Display Coagulation Panel: No Data to Display Cardiac Panel: No Data to Display Arterial Blood Gas: No Data to Display Venous Blood Gas: No Data to Display Pancreas Panel: No Data to Display Thyroid Panel: No Data to Display Infectious Disease: No Data to Display Blood Cultures: No Data to Display Toxicology Panel: No Data to Display Panel: No Data to Display Imaging and Studies Imaging and Studies Study information below may be from another EMR and interpreted by another provider. Please see original notes in EMR for more complete details. EKG Summary: DATE/TIME OF SERVICE: 12/23/201101 : 1970PERFORMING LOCATION: ER APPROVED REPORT Exam: Resting ECG Reason for Exam: abdominal pain Patient Location: E HR:111 bpm ECG Measurements Heart Rate 111 AXIS MT 118 P 85 QRSd 79 QRS 75 QT 319 T44 QTc 434 Conclusion Sinus tachycardia...rate> 99 Right atrial enlargement...P>0.25mV 2 lds or<-0.24mV aVR/aVL. Stress Test Summary: DATE OF SERVICE: : 1970 APPROVED REPORT Exam: Exercise Treadmill Patient Location: Out-Patient Room/Bed: Stress Nurse: Alisha Vallejo RN BMI: 31.24 Baseline Rhythm: Sinus Rhythm Indications: Chest Pain Stress ECG Conclusion 1. Good exercise tolerance of 8.06 METS limited by fatigue. 2. Normal heart rate and blood pressure response to exercise 3. Patient achieved 91% of predicted heart rate for age. Electrocardiographically the test was negative for myocardial ischemia. There were no significant dysrhythmias Anesthesia Assessment and Plan Anesthesia History Personal History: No History of Anesthesia Complications Family History: No Family History of Anesthesia Complications Exercise Tolerance Exercise Tolerance: Metabolic Equivalents>4 Pertinent Negatives Pertinent Negatives: No Symptoms of GERD, No Major Cardiovascular Symptoms or Complaints and No Major Pulmonary Symptoms or Complaints Cardiac & Pulmonary Exam Cardiac Exam: Normal S1/S2 Heart Sounds Pulmonary Exam: Clear Bilateral Breath Sounds Implantable Cardiac Device Does patient have a Pacemaker or an ICD?: No Airway Exam Known Difficult Airway: No Mallampati Class: 2 Mouth Opening: Normal (> 3cm) Thyromental Distance: Greater than 3 cm Neck Range of Motion: Full ROM Neck Circumference: Normal Teeth Condition: Removable Dentures/Plates Upper ASA Classification ASA Score: ASA 3 Emergency Case?: No NPO Status NPO Status: NPO Clears >2 hours, Solids >8 hours Status Status: Not Relevant due to Medical History Anesthesia Plan Resuscitation Status: Full Code Anesthesia Technique: MAC Anesthesia Airway Planned: Natural Airway Monitors Used: Standard Monitors
[2022-04-13 11:03] VITALS: BMI 32.5
[2022-04-13] MEDS: Tetracaine 0.5% 4 ML BTL OS (11:29)
[2022-04-13] MEDS: Balanced Salt Soln.-PLUS 500 ML BAG (11:30)
[2022-04-13] MEDS: Duovisc Viscoelastic System EACH 1 EACH (11:31)
[2022-04-13] MEDS: Lidocaine 1% Pres-Free 5 ML VIAL (11:32)
[2022-04-13] MEDS: Povidone-Iodine Ophth 30 ML BTL (11:35)
[2022-04-13] MEDS: Lidocaine 2% Jelly 6 ML SYR (11:39)
[2022-04-13 11:47] VITALS: BP 141/72; PULSE 69; RESP 14; TEMP 36.1; O2SAT 98
--- NOTE | 2022-04-13 11:51 | W.PM.DSUDISC ---
Discharge Plan Disposition Patient Disposition: HOME Condition: Good Discharge Details Attending Provider: Teja Link Primary Care Provider: Anders Garcia Home Meds and New Rx's Prescriptions: No Action magnesium oxide 500 mg tablet 1,000 mg PO BID Qty: 120 3RF aspirin [Aspir-81] 81 MG tablet,delayed release (DR/EC) 81 mg PO DAILY epinephrine [EpiPen 2-Sebastián] 0.3 MG/0.3 ML auto-injector 0.3 mg IM PRN 30 Days Qty: 1 5RF warfarin 5 mg tablet 5 mg PO DIRECTED BY Qty: 120 3RF Protocol: Dose Management Condition: Wednesday Dose/Route: 10 mg Instruction: 2 x 5 mg tablets Condition: Wednesday Dose/Route: 10 mg Instruction: 2 x 5 mg tablets Condition: Wednesday Dose/Route: 10 mg Instruction: 2 x 5 mg tablets Condition: Wednesday Dose/Route: 10 mg Instruction: 2 x 5 mg tablets Condition: Dose/Route: 15 mg Instruction: 3 x 5 mg tablets Condition: Wednesday Dose/Route: 10 mg Instruction: 2 x 5 mg tablets Condition: Wednesday Dose/Route: 10 mg Instruction: 2 x 5 mg tablets Protocol Text: Adjustment Start Date: Wednesday09/26/21 INR Value: 3.1 INR Date: 09/26/21 Recheck Date: 10/03/21 oxybutynin chloride 5 mg tablet 5 mg PO BID Qty: 180 0RF sucralfate [Carafate] 1 gram tablet 1 g PO BID Qty: 60 0RF albuterol sulfate [Proventil HFA] 90 mcg/actuation HFA aerosol inhaler 2 puff IH QID Qty: 6.7 1RF ondansetron 4 mg tablet,disintegrating 4 mg PO TID PRN (Reason: nausea and vomiting) Qty: 6 0RF Discharge Instructions Stand Alone Forms: Post-op Topical Cataract, Jmail Sloan (DSU) Discharge Orders Discharge Orders: Discharge Order (Routine); Ordered 04/13/22 Ordered By: Teja Link DS: Diagnosis Discharge Diagnosis (1) Nuclear sclerotic cataract of left eye: Status: Resolved (2) Posterior subcapsular age-related cataract of left eye: Status: Resolved
--- NOTE | 2022-04-13 11:53 | ROE_ITS ---
Date of service: 04/13/22 Time of Service: 11:53 Operative Note Operative Note DATE OF PROCEDURE: 04/13/22 PRE-OP DIAGNOSIS: Nuclear/posterior subcapsular cataract, left eye POST-OP DIAGNOSIS: same PROCEDURE: Cataract extraction using phacoemulsification with intraocular lens implant, left eye SURGEON: Teja Link ANESTHESIA TYPE: Local By Surgeon and MAC Refer to Anesthesia Record PATHOLOGY: none sent COMPLICATIONS: None Patient was transported to: same day Patient's condition: stable Implants: [employer] / [employer] Tecnis [id number] Indications: Progressive decreased vision due to cataract, left eye Procedure Description: CATARACT SURGERY OPERATIVE REPORT PREOPERATIVE DIAGNOSIS: 1. Nuclear/posterior subcapsular cataract, left eye POSTOPERATIVE DIAGNOSIS: Same OPERATION: 1. Cataract extraction using phacoemulsification with posterior chamber intraocular lens implant, left eye. IOL: IOL Medical Staff Manager/Model: [employer] Kend[employer] / CARLYLE Tecnis [id number] IOL Power: + 19.0 diopters IOL Serial Number: [id number] Optic Diameter: 6.0 mm Haptic/Overall Diameter: 13.0 mm PHACO INFO: Kemar Twigmoreurion Vision System with OZil and Active [employer]uidics Cumulative Dispersed Energy (CDE): 8.22 seconds SURGEON: Teja Link MD, DONTRELL ANESTHESIA: Monitored A [facility] (MAC), with local sub-tenon's anesthetic infiltration COMPLICATIONS: None SPECIMENS: None INDICATIONS FOR PROCEDURE: The patient is a 51-year-old lady with history of diminished visual acuity in her left eye secondary to the development of nuclear/posterior subcapsular cataract. She is significantly symptomatic that she desires cataract surgery and attempt to improve and maximize her vision. The option of cataract surgery was offered to the patient and she wished to proceed PROCEDURE: The correct surgical eye was identified and marked as the left eye and the pupil was dilated in the preoperative area using mydriatics and cycloplegics. The dilated pupil size was 7.0 mm. Oral sedation was administered in the form of an Imprimis MKO Melt (midazolam 3mg/ketamine 25mg/ondansetron 2mg). The patient was brought to the operating room where cardiopulmonary monitoring was instituted and surgical time-out was performed, confirming the correct operative eye and IOL power. Topical anesthesia was administered and ophthalmic povidone-iodine 5% was instilled into the conjunctival fornices. Lidocaine gel was applied to the cornea and the una-ocular area was prepped with Betadine 10% solution and draped in the usual sterile fashion for intraocular surgery, including an aperture drape. A Tegaderm transparent film dressing was cut in half and used to cover the lashes and lid margins. Care was taken to sequester the lashes and lid margins under the Tegaderm dressing. A lid speculum was placed between the lids of the operative eye and the Kemar LuxOR Revalia operating microscope was maneuvered into position. Amrik scissors were then used to make a conjunctival buttonhole approximately 6mm posterior to the limbus in the inferonasal quadrant. Blunt dissection was carried out to expose bare sclera, and a blunt-tipped sub-tenon?s anesthesia cannula was introduced and passed posteriorly along the globe where non- preserved plain lidocaine was injected into posterior sub-Tenon?s space. A sideport knife was used to make a paracentesis port superiorly/superiortemporally. Intraocular phenylephrine/lidocaine was injected int the anterior chamber.. The anterior chamber was filled with viscoelastic. A keratome knife was used to construct a 2-plane near-clear corneal tunnel extending 2.0mm into clear cornea temporally. A flap was raised on the anterior capsule and capsulorhexis forceps were used to complete a continuous curvilinear capsulorhexis of 5.0 mm. Balanced salt solution was then used to perform cortical cleaving hydrodissection and nuclear hydrodelineation until the lens could be freely rotated within the capsular bag. The lens nucleus was then disassembled and re moved within the capsular bag and iris plane using phacoemulsification. Residual cortical material was removed using the 45-degree angled silicone I/A tip with 0.3mm port. The posterior capsule was carefully polished to remove as much residual lens epithelial cells as safely possible. The capsular bag was then inflated and the anterior chamber deepened with viscoelastic. The lens implant described above was inserted into the capsular bag using the CARLYLE Bill [employer]S Slough Injector. A Kuglen hook was used to dial the IOL into position. Residual viscoelastic was then removed first from posterior to the IOL, then from the anterior chamber using the I/A handpiece. The lens implant was noted to center nicely within the capsular bag. The incisions were stromally hydrated, and the anterior chamber was reformed using BSS. Then 0.5cc of moxifloxacin 1.0mg/ml were injected into the capsular bag and anterior chamber. The incisions were checked with a Weck spear and found to be secure. Several drops o f ophthalmic povidone-iodine 5% were then applied to the eye followed by two drops of Imprimis combination prednisolone/moxifloxacin/nepafenac solution. The drapes were removed and a clear plastic protective eye shield was placed over the eye. The patient was then returned to Same Day Surgery in stable condition.
[2022-04-13 12:17] VITALS: BP 147/80; PULSE 85; RESP 18; TEMP 36.3; O2SAT 99
--- NOTE | 2022-04-13 15:33 | W.ANESPOSTOP ---
Postoperative Evaluation Date, Time and Location Date Performed: 04/13/22 Time Performed: 11:55 Patient Location: Day Surgery Unit Vital Signs Most Recent Imported Vital Signs: Most Recent Vital Signs Temp Pulse Resp BP Pulse Ox 36.3 C L 85 18 147/80 H 99 04/13/22 12:17 04/13/22 12:17 04/13/22 12:17 04/13/22 12:17 04/13/22 12:17 Pain Score Most Recent Pain Score: Most Recent Pain Score Pain Level 0 04/13/22 11:47 Assessment Mental Status: Awake (Alert & Oriented to Patient Baseline) Airway and Respiratory Function: Patent airway with normal (patient baseline) respiratory exam Cardiovascular Function: Hemodynamically Stable Hydration Status: Adequately Hydrated Nausea & Vomiting: No Nausea or Vomiting Pain: Pt. Denies Any Pain Peripheral Nerve Block: Patient did not receive a nerve block
== END 2022-04-13 12:30 | disposition home or self-care (01) ==
LOC: SUR 09:44
PROVIDERS: PCP Nurse Practitioner Family; Visit Provider Ophthalmology
PROC: (CPT 66984; principal; 2022-04-13 11:15)
DX: H25.042 Posterior subcapsular polar age-related cataract, left eye (principal); Z79.01 Long term (current) use of anticoagulants; Z86.718 Personal history of other venous thrombosis and embolism
CPT/HCPCS: 66984; V2632

== ENCOUNTER 2022-04-27 07:01 | Day surgery (SDC) | payer MEDICAID, SELFPAY ==
[2022-04-27 07:05] VITALS: BP 140/76; PULSE 74; RESP 18; TEMP 36; O2SAT 98
[2022-04-27] MEDS: Tropicam./Phenyleph. (1/2.5%) 5 ML BTL OD ×3 (07:12→07:22)
--- NOTE | 2022-04-27 07:12 | ANES.PREOP_ITS ---
General Info Date of Service Date Performed: 04/27/22 Height: 5 ft Weight: 75.5 kg Body Mass Index (BMI): 32.5 Surgical Procedure: Operation Date: 04/27/22 08:40 Proposed Procedure Side Surgeon p Cataract Extraction with IOL Implant Right Teja Link MD Meds Allergies and Home Medications Allergies Allergy/AdvReac Type Severity Reaction Status Date / Time venom-honey bee Allergy Severe Anaphylaxsi Verified 04/27/22 07:10 [bee venom (honey bee)] s codeine [Codeine] Allergy Intermediate HIVES Verified 04/27/22 07:10 Penicillins Allergy Intermediate HIVES Verified 04/27/22 07:10 topiramate AdvReac PARESTHESIAS Verified 04/27/22 07:10 FEET MUSHROOMS Allergy Unknown Hives Uncoded 04/27/22 07:10 Home Medication Medication Instructions Recorded aspirin 81 mg tablet,delayed 81 mg PO DAILY 02/21/15 release (Aspir-) epinephrine 0.3 mg/0.3 mL 0.3 mg (0.3 mL) IM PRN 30 days #1 01/14/18 injection, auto-injector (EpiPen ea 2-Sebastián) magnesium oxide 500 mg tablet 1,000 mg PO BID #120 tabs 03/10/19 albuterol sulfate 90 mcg/actuation 2 puff inhalation QID #6.7 grams 12/17/20 aerosol inhaler (Proventil HFA) sucralfate 1 gram tablet (Carafate) 1 g PO BID #60 tabs 12/17/20 ondansetron 4 mg disintegrating 4 mg PO TID PRN nausea and 12/23/20 tablet vomiting #6 tabs warfarin 5 mg tablet 5 mg PO DIRECTED BY MD #120 tabs 09/04/21 oxybutynin chloride 5 mg tablet 5 mg PO BID #180 tabs 04/02/22 Current Visit Medications: Current Medications Generic Name Dose Route Start Last Admin Trade Name Freq PRN Reason Stop Dose Admin Acetaminophen 1,000 mg 04/27/22 06:00 Acetaminophen 500 Mg Tab PO Q4H PRN PRN Miscellaneous Medication 0 ml 04/27/22 06:00 Prednisolone 1%, Moxifloxacin 0.5%, Nepafenac 0.1% 5ml Btl OD DIRECTED MARIANELA Miscellaneous Medication 0 ml 04/27/22 06:00 Tropicam./Phenyleph. 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 Generalized anxiety disorder F41.1 Major depressive disorder F32.9 Migraine headache G43.909 Hyperlipidemia E78.5 Osteoarthritis M19.90 Periodontal disease K05.6 Nausea & vomiting R11.2 Noncompliance with medication regimen Z91.14 Finger injury S69.90XA Nuclear sclerotic cataract of left eye H25.12 Posterior subcapsular age-related cataract of left eye H25.042 Nuclear sclerotic cataract of right eye H25.11 Posterior subcapsular age-related cataract, right eye H25.041 Medical History Medical History Brachial vein thrombosis, 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) Cataract 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) History of tobacco use Right carpal tunnel syndrome repaired 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 Surgical History Surgical History History of bilateral tubal ligation History of carpal tunnel surgery of right wrist History of cataract surgery Hx of resection of rib (02/02/12) Right first 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 S/P LEEP of cervix S/P tonsillectomy and adenoidectomy S/P vascular surgery (02/02/12) Right subclavian vein stent Status post bilateral salpingo-oophorectomy (BSO) Tobacco Smoking/Tobacco Use Status: Current every day Tobacco Type: cigarettes and e- cigarettes Alcohol Alcohol Intake: never Substance Use Substance use: Occasionally Substance use type: marijuana Vital Signs and Lab Results Lab Results Blood Type / Crossmatch: No Data to Display Complete Blood Count: No Data to Display Complete Metabolic Panel: Sodium Level 139 mmol/L (136-145) 04/07/22 08:22 Potassium Level 4.1 mmol/L (3.5-5.1) 04/07/22 08:22 Chloride Level 106 mmol/L (98-107) 04/07/22 08:22 Carbon Dioxide Level 25.8 mmol/L (21.0-32.0) 04/07/22 08:22 Blood Urea Nitrogen 15 mg/dL (7-18) 04/07/22 08:22 Creatinine 0.9 mg/dL (0.55-1.02) 04/07/22 08:22 Calcium Level 8.7 mg/dL (8.5-10.1) 04/07/22 08:22 Glucose Level 121 mg/dL (74-106) H 04/07/22 08:22 Liver Function Panel: No Data to Display Coagulation Panel: No Data to Display Cardiac Panel: No Data to Display Arterial Blood Gas: No Data to Display Venous Blood Gas: No Data to Display Pancreas Panel: No Data to Display Thyroid Panel: No Data to Display Infectious Disease: No Data to Display Blood Cultures: No Data to Display Toxicology Panel: No Data to Display Panel: 2 No Data to Display Imaging and Studies Imaging and Studies Study information below may be from another EMR and interpreted by another provider. Please see original notes in EMR for more complete details. EKG Summary: DATE/TIME OF SERVICE: 12/23/20 110 : 1970PERFORMING LOCATION: ER APPROVED REPORT Exam: Resting ECG Reason for Exam: abdominal pain Patient Location: E HR:111 bpm ECG Measurements Heart Rate 111 AXIS IN 118 P 85 QRSd 79 QRS 75 QT 319 T44 QTc 434 Conclusion Sinus tachycardia...rate> 99 Right atrial enlargement...P>0.25mV 2 lds or<-0.24mV aVR/aVL. Stress Test Summary: DATE OF SERVICE: : 1970 APPROVED REPORT Exam: Exercise Treadmill Patient Location: Out-Patient Room/Bed: Stress Nurse: Alisha Vallejo RN BMI: 31.24 Baseline Rhythm: Sinus Rhythm Indications: Chest Pain Stress ECG Conclusion 1. Good exercise tolerance of 8.06 METS limited by fatigue. 2. Normal heart rate and blood pressure response to exercise 3. Patient achieved 91% of predicted heart rate for age. Electroc ardiographically the test was negative for myocardial ischemia. There were no significant dysrhythmias Anesthesia Assessment and Plan Anesthesia History Personal History: No History of Anesthesia Complications Family History: No Family History of Anesthesia Complications Exercise Tolerance Exercise Tolerance: Metabolic Equivalents>4 Cardiac & Pulmonary Exam Cardiac Exam: Normal S1/S2 Heart Sounds Pulmonary Exam: Clear Bilateral Breath Sounds Implantable Cardiac Device Does patient have a Pacemaker or an ICD?: No Airway Exam Known Difficult Airway: No Mallampati Class: 2 Mouth Opening: Normal (> 3cm) Thyromental Distance: Greater than 3 cm Neck Range of Motion: Full ROM Neck Circumference: Normal Teeth Condition: Removable Dentures/Plates Upper ASA Classification ASA Score: ASA 3 Emergency Case?: No NPO Status NPO Status: NPO Clears >2 hours, Solids >8 hours Status Status: Not Relevant due to Medical History Anesthesia Plan Resuscitation Status: Full Code Anesthesia Technique: MAC Anesthesia Airway Planned: Natural Airway Monitors Used: Standard Monitors
[2022-04-27 07:15] VITALS: BMI 32.5
[2022-04-27] MEDS: Balanced Salt Soln.-PLUS 500 ML BAG (08:15)
[2022-04-27] MEDS: Duovisc Viscoelastic System EACH 1 EACH (08:15)
[2022-04-27] MEDS: Tetracaine 0.5% 4 ML BTL OD (08:15)
[2022-04-27] MEDS: Lidocaine 2% Jelly 6 ML SYR (08:16)
[2022-04-27] MEDS: Povidone-Iodine Ophth 30 ML BTL (08:17)
[2022-04-27 08:33] VITALS: BP 130/59; PULSE 68; RESP 16; TEMP 35.8; O2SAT 99
--- NOTE | 2022-04-27 08:36 | W.PM.DSUDISC ---
Discharge Plan Disposition Patient Disposition: HOME Condition: Good Discharge Details Attending Provider: Teja Link Primary Care Provider: Anders Garcia Home Meds and New Rx's Prescriptions: No Action magnesium oxide 500 mg tablet 1,000 mg PO BID Qty: 120 3RF aspirin [Aspir-81] 81 MG tablet,delayed release (DR/EC) 81 mg PO DAILY epinephrine [EpiPen 2-Sebastián] 0.3 MG/0.3 ML auto-injector 0.3 mg IM PRN 30 Days Qty: 1 5RF warfarin 5 mg tablet 5 mg PO DIRECTED BY Qty: 120 3RF Protocol: Dose Management Condition: Wednesday Dose/Route: 10 mg Instruction: 2 x 5 mg tablets Condition: Wednesday Dose/Route: 10 mg Instruction: 2 x 5 mg tablets Condition: Wednesday Dose/Route: 10 mg Instruction: 2 x 5 mg tablets Condition: Wednesday Dose/Route: 10 mg Instruction: 2 x 5 mg tablets Condition: Dose/Route: 15 mg Instruction: 3 x 5 mg tablets Condition: Wednesday Dose/Route: 10 mg Instruction: 2 x 5 mg tablets Condition: Wednesday Dose/Route: 10 mg Instruction: 2 x 5 mg tablets Protocol Text: Adjustment Start Date: Wednesday09/26/21 INR Value: 3.1 INR Date: 09/26/21 Recheck Date: 10/03/21 oxybutynin chloride 5 mg tablet 5 mg PO BID Qty: 180 0RF sucralfate [Carafate] 1 gram tablet 1 g PO BID Qty: 60 0RF albuterol sulfate [Proventil HFA] 90 mcg/actuation HFA aerosol inhaler 2 puff IH QID Qty: 6.7 1RF ondansetron 4 mg tablet,disintegrating 4 mg PO TID PRN (Reason: nausea and vomiting) Qty: 6 0RF Discharge Instructions Stand Alone Forms: Post-op Topical Cataract, Jamil Sloan (DSU) Discharge Orders Discharge Orders: Discharge Order (Routine); Ordered 04/27/22 Ordered By: Teja Link DS: Diagnosis Discharge Diagnosis (1) Posterior subcapsular age-related cataract, right eye: Status: Resolved (2) Nuclear sclerotic cataract of right eye: Status: Resolved
--- NOTE | 2022-04-27 08:37 | W.PM.OP ---
Date of service: 04/27/22 Time of Service: 08:37 Operative Note Operative Note DATE OF PROCEDURE: 04/27/22 PRE-OP DIAGNOSIS: Nuclear/posterior subcapsular cataract, right eye POST-OP DIAGNOSIS: same PROCEDURE: Cataract extraction using phacoemulsification with intraocular lens implant, right eye SURGEON: Teja Link ANESTHESIA TYPE: Local By Surgeon and MAC Refer to Anesthesia Record ESTIMATED BLOOD LOSS: 0 PATHOLOGY: none sent COMPLICATIONS: None Patient was transported to: same day Patient's condition: stable Implants: [employer] Kend[employer]/CARLYLE Tecnis [id number] Indications: Progressive visual loss due to cataract, right eye Procedure Description: CATARACT SURGERY OPERATIVE REPORT PREOPERATIVE DIAGNOSIS: 1. Nuclear/posterior subcapsular cataract, right eye POSTOPERATIVE DIAGNOSIS: Same OPERATION: 1. Cataract extraction using phacoemulsification with posterior chamber intraocular lens implant, right eye. IOL: IOL Geoscience Specialist/Model: [employer] Kend[employer] / CARLYLE Tecnis [id number] IOL Power: + 21.0 diopters IOL Serial Number: [id number] Optic Diameter: 6.0mm Haptic/Overall Diameter: 13.0mm PHACO INFO: Kemar Vimblyurion Vision System with OZil and Active Fluidics Cumulative Dispersed Energy (CDE): 2.57 seconds SURGEON: Teja Link MD, DONTRELL ANESTHESIA: Monitored Anesthesia Care (MAC), with local sub-tenon's anesthetic infiltration COMPLICATIONS: None SPECIMENS: None INDICATIONS FOR PROCEDURE: The patient is a 51-year-old lady with history of diminished visual acuity in both eyes secondary to the development of bilateral nuclear/posterior subcapsular cataract, left eye worse than right. She has already undergone cataract surgery in the left eye and is doing well postoperatively she has a history of mild myopia in both eyes. The left eye was corrected for distance. She has been functioning well since cataract surgery in her left eye with monovision. She desires to maintain her monovision with right eye surgery. Postoperative refractive target is -1.75 diopters. PROCEDURE: The correct surgical eye was identified and marked as the right eye and the pupil was dilated in the preoperative area using mydriatics and cycloplegics. The dilated pupil size was 7.0 mm. Oral sedation was administered in the form of an Imprimis MKO Melt (midazolam 3mg/ketamine 25mg/ondansetron 2mg). The patient was brought to the operating room where cardiopulmonary monitoring was instituted and surgical time-out was performed, confirming the correct operative eye and IOL power. Topical anesthesia was administered and ophthalmic povidone-iodine 5% was instilled into the conjunctival fornices. Lidocaine gel was applied to the cornea and the una-ocular area was prepped with Betadine 10% solution and draped in the usual sterile fashion for intraocular surgery, including an aperture drape. A Tegaderm transparent film dressing was cut in half and used to cover the lashes and lid margins. Care was taken to sequester the lashes and lid margins under the Tegaderm dressing. A lid speculum was placed between the lids of the operative eye and the Kemar LuxOR Revalia operating microscope was maneuvered into position. Amrik scissors were then used to make a conjunctival buttonhole approximately 6mm posterior to the limbus in the inferonasal quadrant. Blunt dissection was carried out to expose bare sclera, and a blunt-tipped sub-tenon?s anesthesia cannula was introduced and passed posteriorly along the globe where non-preserved plain lidocaine was injected into posterior sub-Tenon?s space. A sideport knife was used to make a paracentesis port inferotemporally. Intraocular phenylephrine/lidocaine was injected into the anterior chamber. The anterior chamber was filled with viscoelastic. A keratome knife was used to construct a 2-plane near-clear corneal tunnel extending 2.0mm into clear cornea superiortemporally. A flap was raised on the anterior capsule and capsulorhexis forceps were used to complete a continuous curvilinear capsulorhexis of 5.5 mm. The capsule was noted to be quite thin. Balanced salt solution was then used to perform cortical cleaving hydrodissection and nuclear hydrodelineation until the lens could be freely rotated within the capsular bag. The lens nucleus was then disassembled and removed within the capsular bag and iris plane using phacoemulsification. Residual cortical material was removed using the I/A handpiece. The posterior capsule was carefully polished to remove as much residual lens epithelial cells as safely possible. There was some residual posterior subcapsular plaque which could not be safely removed. The capsular bag was then inflated and the anterior chamber deepened with viscoelastic. The lens implant described above was inserted into the capsular bag using the CARLYLE [place] Injector. A Kuglen hook was used to dial the IOL into position. Residual viscoelastic was then removed first from posterior to the IOL, then from the anterior chamber using the I/A handpiece. The lens implant was noted to center nicely within the capsular bag. The incisions were stromally hydrated, and the anterior chamber was reformed using BSS. Then 0.5cc of moxifloxacin 1.0mg/ml were injected into the capsular bag and anterior chamber. The incisions were checked with a Weck spear and found to be secure. Several drops of ophthalmic povidone-iodine 5% were then applied to the eye followed by two drops of Imprimis combination prednisolone/moxifloxacin/nepafenac solution. The drapes were removed and a clear plastic protective eye shield was placed over the eye. The patient was then returned to Same Day Surgery in stable condition.
--- NOTE | 2022-04-27 09:02 | W.ANESPOSTOP ---
Postoperative Evaluation Date, Time and Location Date Performed: 04/27/22 Time Performed: 07:45 Patient Location: Day Surgery Unit Vital Signs Most Recent Imported Vital Signs: Most Recent Vital Signs Temp Pulse Resp BP Pulse Ox 35.8 C L 68 16 130/59 L 99 04/27/22 08:33 04/27/22 08:33 04/27/22 08:33 04/27/22 08:33 04/27/22 08:33 Assessment Mental Status: Awake (Alert & Oriented to Patient Baseline) Airway and Respiratory Function: Patent airway with normal (patient baseline) respiratory exam Cardiovascular Function: Hemodynamically Stable Hydration Status: Adequately Hydrated Nausea & Vomiting: No Nausea or Vomiting Pain: Pt. Denies Any Pain Peripheral Nerve Block: Patient did not receive a nerve block
[2022-04-27 09:03] VITALS: BP 133/72; PULSE 73; RESP 16; TEMP 36.4; O2SAT 97
[2022-04-27] MEDS: Acetaminophen 500 MG TAB 1000 MG PO (09:18)
[2022-04-27 09:35] VITALS: BP 127/79; PULSE 68; RESP 16; TEMP 36.3; O2SAT 99
== END 2022-04-27 09:38 | disposition home or self-care (01) ==
PROVIDERS: PCP Nurse Practitioner Family; Visit Provider Ophthalmology
PROC: (CPT 66984; principal; 2022-04-27 08:30)
DX: H25.041 Posterior subcapsular polar age-related cataract, right eye (principal)
CPT/HCPCS: 66984; V2632

== ENCOUNTER 2022-06-01 10:45 | Outpatient (CLI) | payer MEDICAID, SELFPAY ==
--- NOTE | 2022-06-01 10:30 | DI.RAD_ITS ---
Exam(s) XR KNEE LT 4V AP,LAT,NIK,PAT EXAM: XR KNEE LT 4V AP,LAT,NIK,PAT CLINICAL HISTORY: eval L knee pain, patellofemoral tracking. TECHNIQUE: 2D digital imaging was performed. COMPARISON: CR XR knee RT 2V AP,lat from 10/26/2018 FINDINGS: 3 views No evidence of fracture. There appears to be a small joint effusion. No degenerative changes. No o sseous lesions. No erosions. No osteophytes. No osteochondral defects. IMPRESSION: No significant osseous findings but there appears to be a small joint effusion. DATA REPOSITORY: RADIATION DOSE DELIVERED:
== END 2022-06-01 10:46 | disposition home or self-care (01) ==
LOC: DIORS 10:45
PROVIDERS: PCP Nurse Practitioner Family; Referring Provider Nurse Practitioner Family; Visit Provider Student in an Organized Health Care Education/Training Program
DX: M22.2X2 Patellofemoral disorders, left knee (principal); M25.462 Effusion, left knee
CPT/HCPCS: 73564

== ENCOUNTER → 2022-07-06 12:25 | Outpatient (CLI) | payer MEDICAID, SELFPAY ==
--- NOTE | 2022-07-06 10:15 | DI.RAD_ITS ---
Exam(s) XR CHEST 2V PA LATERAL EXAM: XR CHEST 2V PA LATERAL CLINICAL HISTORY: Intermittent chest pain,h/o dvt, r07.9,z86.718. TECHNIQUE: 2D digital imaging was performed. COMPARISON: CR,XR XR PORTABLE CHEST AP from 08/27/2019 FINDINGS: 2 views: Heart size is normal. The mediastinum is not widened. Platelike atelectasis in the lower left lung is again noted. No new infiltrates nor pleural effusion s. No pulmonary edema. Endovascular stent in what is most probably the medial right subclavian vein or artery is again noted . IMPRESSION: No acute pulmonary findings. Right subclavian vessel stent again noted. DATA REPOSITORY: RADIATION DOSE DELIVERED:
== END ==
PROVIDERS: PCP Nurse Practitioner Family; Visit Provider Nurse Practitioner Family
DX: R07.89 Other chest pain (principal); Z86.718 Personal history of other venous thrombosis and embolism; Z79.01 Long term (current) use of anticoagulants; J98.11 Atelectasis
CPT/HCPCS: 71046

== ENCOUNTER → 2022-07-09 01:23 | Outpatient (CLI) | payer MEDICAID, SELFPAY ==
--- NOTE | 2022-07-09 07:45 | DI.NM_ITS ---
APPROVED REPORT Exam: Pharmacologic Patient Location: Out-Patient Room/Bed: Stress Nurse: Myrtle Martin RN Ordering Provider:ESVIN SORTO, Contact Number: [phone] BMI: 31.63 Baseline Rhythm: Sinus Bradycardia Indications: INTERMITTENT CP, H/O DVT, FAMILY HISTORY Medical History Medical History: HTN, GERD, DJD, Depression, HLD, Osteoarthritis, DVTs, Tobacco use, Asthma Cardiac Medications: Lisinopril, Warfarin, Allergies: Bee venom, Codeine, PCN, Topiramate, Mushrooms Cardiac Risk Factors: FHX of CAD, HTN, Hyperlipidemia, PVD, Smoking (current) Previous Cardiac Procedures: R subclavian vein stent (2011) Pretest Chest Pain Characteristics: No chest pain Exercise History: Physically active Physical Disabilities: None Lung Sounds: Clear to auscultation Heart Sounds: Regular Stress Test Details Test: Pharmacologic stress testing performed using 0.4 mg of regadenoson per 5 mL given IV over 10 s econds. Reason for pharmacologic stress test: treadmill unavailable for use. Nuclear Acquisition: Rest Tc-99m/Stress Tc-99m 1 day Rest Isotope: Tc-99m Sestamibi. Dose: 9.0 Date: 07/09/2022 Injection Time: 1130 Stress Isotope: Tc-99m Sestamibi. Dose: 30.0 Date: 07/09/2022 Injection Time: 1328 HR Resting HR Supine: 59 bpm Max Heart Rate (APMHR): 169.440402 bpm Target HR (85% APMHR): 143.849127 bpm Max HR Achieved: 103 bpm % of APMHR: 60.95 Recovery HR: 89 bpm BP Resting BP Supine: 122/72 mmHg Max BP: 128/74 mmHg Recovery BP: 118/72 mmHg ECG Resting ECG: Sinus Bradycardia Ectopy: None Stress ECG: Sinus Rhythm ST Change: No significant ST segment changes noted Arrhythmia: None Recovery ECG: Sinus Rhythm Recovery ST Change: No significant ST segment changes noted Recovery Arrhythmia: None Clinical Stress Symptoms: Nausea Rate Pressure Product: [id number] Stress ECG Conclusion 1. Resting EKG was normal 2. Testing was done using pharmacologic stress with regadenson 3. peak heart rate was 60% of predicted for age 4. \Electrocasrdiographic portion of the test was nondiagnostic 5. See MPI report Stress Test Summary STAGE HR BP SpO2 Symptoms NOTES Supine 59 122/72 1 min post Lexiscan injection 90 128/74 Nausea 3 min post Lexiscan injection 96 128/74 6 min post Lexiscan injection 89 118/72 Nausea resolved. MPI Conclusion Myocardial perfusion is normal EF 62%, normal wall motion Radiologist Interpretation Radiologist Interpretation by: Mo Nunes MD Interpretation Date/Time: 07/09/2022 16:54:21
[2022-07-09] MEDS: Regadenoson 0.4 MG/5 ML SYR IVP (13:02)
== END ==
PROVIDERS: PCP Nurse Practitioner Family; Visit Provider Nurse Practitioner Family
DX: R07.89 Other chest pain (principal); Z79.01 Long term (current) use of anticoagulants; Z86.718 Personal history of other venous thrombosis and embolism
CPT/HCPCS: 78452; 93017; J2785

== ENCOUNTER 2022-07-31 07:48 | Emergency (ER) | payer MEDICAID, SELFPAY ==
[2022-07-31 07:55] VITALS: BP 167/108; PULSE 97; RESP 24; TEMP 37; O2SAT 99
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
[2022-07-31] MEDS: Ondansetron 4 MG/2 ML VIAL IVP (08:43)
[2022-07-31] MEDS: Ketorolac 15 MG/ML VIAL IM (08:43)
[2022-07-31] MEDS: HYDROmorphone 2 MG/ML SYR 1 MG IVP ×2 (08:43→12:18)
[2022-07-31 08:44] LABS: Abs Immature Grans 0.02 10^3/uL (0.0-0.06); Absolute Basophil Count 0.05 10^3/uL (0.0-0.2); Absolute Lymphocyte Count 2.07 10^3/uL (1.2-3.4); Absolute Monocyte Count 0.47 10^3/uL (0.1-0.8); Absolute Neutrophil Count 6.79 10^3/uL (1.2-6.7); Basophils % 0.5; Eosinophils % 1.1; HCT 47.2 % (36.0-46.0); HGB 16.3 g/dL (11.2-15.7); Immature Grans % 0.2; Lymphocytes % 21.8; MCH 30.6 pg (27.0-33.0); MCHC 34.5 % (32.0-36.0); MCV 89 fL (80-95); MPV 10.2 fL (8.0-11.0); Monocytes % 4.9; Neutrophils % 71.5; Platelet Count 279 10^3/uL (130-400); RBC 5.32 10^6/uL (3.93-5.22); RDW 12.8 % (11.7-14.6); RDW-SD 42.1 fL
[2022-07-31] MEDS: Normal Saline Flush 10 ML SYR IVP ×2 (08:44→12:19)
[2022-07-31 08:58] LABS: INR 2.1 (0.9-1.1); Prothrombin Time 20.2 sec (9.3-11.0)
[2022-07-31 09:06] LABS: ALT 19 U/L (14-59); AST 19 U/L (15-37); Albumin 4.3 g/dL (3.4-5.0); Alkaline Phosphatase 93 U/L (46-116); Anion Gap 10.9 mmol/L (3-11); BUN 11 mg/dL (7-18); Bilirubin, Total 0.6 mg/dL (0.2-1.0); CO2 20.1 mmol/L (21.0-32.0); Calcium 9.3 mg/dL (8.5-10.1); Chloride 105 mmol/L (98-107); Estimated GFR 68.21 (mL/min/1.73m2); Glucose 141 mg/dL (74-106); Potassium 4.2 mmol/L (3.5-5.1); Sodium 136 mmol/L (136-145); Total Protein 8.5 g/dL (6.4-8.2)
[2022-07-31] MEDS: diazePAM 2 MG TAB PO ×2 (09:11→12:17)
[2022-07-31 10:06] VITALS: BP 120/64; PULSE 60; RESP 18; O2SAT 100
[2022-07-31] MEDS: Normal Saline - Diluent 50 ML VIAL IJ (10:49)
[2022-07-31] MEDS: Omnipaque 350 MG/ML 500 ML BTL-Imaging package 100 ML IJ (10:50)
--- NOTE | 2022-07-31 10:52 | DI.CT_ITS ---
Exam(s) CT NECK CHEST W EXAM: CT NECK CHEST W CLINICAL HISTORY: rt neck and upper back pain, prior rib resection TECHNIQUE: Imaging Protocol: Axial computed tomography images with coronal and sagittal reformatted images were created and reviewed CONTRAST MATERIAL: Intravenous: Omnipaque 350 Contrast volume:structured data in ml Contrast route:I V - Oral: yes / no COMPARISON: CR CERV SP.WITH OBL OR FLEX/EXT from 01/13/2008 CR CHEST 2 VIEWS PA,LAT from 01/26/2012 CT CHEST WITHOUT/WITH CONTRAST from 01/26/[address] THORAX CTA from 08/22/2018 CR,XR XR PORTABLE CHEST AP from 08/27/[address] THORAX ABD/PEL CTA from 12/23/2020 CR XR CHEST 2V PA LATERAL from 07/06/2022 FINDINGS: Parotids/submandibular/thyroid gland: Normal. Lymphadenopathy: There is scattered lymph nodes seen along the level one to level three all measurin g less than 8 mm in short axis diameter which are physiologic in nature. Carotids/Jugular: Within normal limits. Vertebral arteries patent. Stent noted left subclavian vein. Some narrowing in midportion of stent lumen patent. Soft tissues: The floor the mouth is unremarkable. The epiglottis and vocal cords are within normal limits. Images through both lung apices are unremarkable. Bones: Cervical thoracic dextroscoliosis. Minimal degenerative changes. Bilateral C7 ribs, right gr eater than left. Prior resection of anterior portion of the right 1st rib. Visualized portions of the brain and orbits: Unremarkable. Sinuses: Clear. Orbits unremarkable as visualized. Chest CT: Tracheobronchial tree: Patent where visualized. Mediastinum and Lary: No dominant adenopathy or fluid collection. Pulmonary parenchyma: No consolidation or dominant measurable mass. No architectural distortion. Pleura: No effusion or pneumothorax. Heart/Aorta: Thoracic aorta non-dilated. The heart is not dilated. No coronary artery calcifications are seen. Bones: Bilateral C7 ribs, small on the left and large on the right. Prior resection of the anterior portion of the right 1st rib. Mild degenerative changes are seen in the thoracic spine. ABDOMEN: Visualized portions unremarkable. IMPRESSION: Congenital deformities of bilateral C7 ribs, right greater than left. Prior resection of the anterio r aspect of the right T1 rib. Right subclavian venous stent appears patent. Findings called to Dr. Khoi Ng of the emergency department. RADIATION DOSE DELIVERED: 947.77mGy.cm Total DLP DATA REPOSITORY: All CT scans at this facility are submitted to the National Radiology Data Registry (NRDR) Dose Index Registry (DIR) with the [employer] (ACR). RADIATION OPTIMIZATION: All CT scans at this facility use at least one of these dose optimization te chniques: automated exposure control; mA and/or kV adjustment per patient size (includes targeted exa ms where dose is matched to clinical indication); or iterative reconstruction.
[2022-07-31] MEDS: Lidocaine 5% Patch 1 PATCH TP (12:18)
[2022-07-31 12:38] VITALS: BP 137/64; PULSE 65; RESP 16; O2SAT 97
--- NOTE | 2022-07-31 12:44 | NUR.NOTE ---
Report received from Celine RN and pt received to ED 8. Pt c/o R neck and shoulder pain 03/04 at this time. Pt states pain started yest @1600 after heavy lifting. A&O. Resp even and unlabored. VSS. Will cont to monitor. Call light in reach. Nursing Note:
--- NOTE | 2022-07-31 14:05 | NUR.NOTE ---
Pt sleeping, arouses easily. Pt rates pain 3/10 at this time. VSS. Will cont to monitor.Nursing Note:
[2022-07-31 14:09] VITALS: BP 98/56; PULSE 56; O2SAT 95
[2022-07-31 14:39] VITALS: BP 108/59; PULSE 57; RESP 15; O2SAT 100
== END 2022-07-31 14:58 | disposition home or self-care (01) ==
PROVIDERS: Emergency Provider Student in an Organized Health Care Education/Training Program; PCP Nurse Practitioner Family
DX: M62.838 Other muscle spasm (principal); R11.2 Nausea with vomiting, unspecified
CPT/HCPCS: 36415; 70491; 80053; 96372; 96374; 96375; 96376; 99284; 71260; 85025; 85610; J1170; J1885; J2405

== ENCOUNTER 2023-01-01 16:15 | Emergency (ER) | payer MEDICAID, SELFPAY ==
[2023-01-01 16:19] VITALS: BP 192/73; PULSE 77; RESP 18; TEMP 36.8; O2SAT 97
--- NOTE | 2023-01-01 16:30 | DI.RAD_ITS ---
Exam(s) XR SHOULDER RT COMPLETE 2+V EXAM: XR SHOULDER RT COMPLETE 2+V CLINICAL HISTORY: pain for 3 days. TECHNIQUE: 2D digital imaging was performed of the right shoulder. Four images were obtained. AP, Grashey and Y views were obtained. COMPARISON: CR Shoulder - 2 Views from 01/29/2010 CR CHEST 2 VIEWS PA,LAT from 12/15/2012 FINDINGS: BONES: No acute fracture is present. No bony destructive lesion is seen. JOINTS: No dislocation present. SOFT TISSUE: Vascular stent is seen adjacent to the clavicle. IMPRESSION: No acute abnormality. DATA REPOSITORY: RADIATION DOSE DELIVERED:
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
[2023-01-01] MEDS: diazePAM 10 MG/2 ML SYR IM (16:39)
[2023-01-01] MEDS: Ketorolac 15 MG/ML VIAL IM (16:39)
[2023-01-01] MEDS: Ondansetron O.D.T. 4 MG TABEF PO (16:39)
--- NOTE | 2023-01-01 17:38 | DI.VRAD_ITS ---
PROCEDURE INFORMATION: Exam: XR Right Shoulder Exam date and time: 01/01/2023 5:09 PM Age: 52 years old Clinical indication: Pain; Shoulder; Right TECHNIQUE: Imaging protocol: Radiologic exam of the right shoulder. Views: 2 or more views. COMPARISON: CT NECK CHEST W 07/31/2022 10:41 AM FINDINGS: Bones/joints: No acute fracture. No acute malalignment. Vasculature: Wall stent right subclavian vein. Soft tissues: Normal. IMPRESSION: No acute bony abnormality. Dictated and Authenticated by: Eric Moss MD. Ordering:LANEY Wadsworth MD
--- NOTE | 2023-01-02 17:45 | NUR.NOTE ---
Nursing Note: Accessed chart for [facility] billing purposes.
== END 2023-01-01 18:24 | disposition home or self-care (01) ==
PROVIDERS: Emergency Provider Emergency Medicine; PCP Nurse Practitioner Family
DX: M25.511 Pain in right shoulder (principal); R11.10 Vomiting, unspecified
CPT/HCPCS: 96372; 99284; 73030; J1885; J3360

== ENCOUNTER 2023-01-02 11:29 | Emergency (ER) | payer MEDICAID, SELFPAY ==
[2023-01-02 11:32] VITALS: BP 190/90; PULSE 88; RESP 16; TEMP 36.3; O2SAT 99
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
--- NOTE | 2023-01-02 12:00 | DI.CT_ITS ---
Exam(s) CT UPPER EXTREMITY RT CTA EXAM: CT UPPER EXTREMITY RT CTA CLINICAL HISTORY: hx subclavian DVT, similar pain. TECHNIQUE: Imaging Protocol: Axial computed tomography images with coronal and sagittal reformatted images were created and reviewed. CONTRAST MATERIAL: Intravenous: Omnipaque 350. Contrast Volume: 100 ML COMPARISON: CT,NM,TMT NM MPI REST STRESS GRP from 07/09/2022 FINDINGS: The contrast was injected via the contralateral upper extremity. There is no significant opacificati on of the right upper extremity veins. This limits evaluation for thrombus. Arteries: The right subclavian, axillary, brachial, radial and ulnar arteries show no evidence of occ lusion or significant stenosis. Veins: There is a stent seen in the right subclavian vein. The midportion of the stent is collapsed. The lack of IV contrast limits evaluation to exclude thrombus. Bones: Unremarkable. Lungs: Mild dependent atelectasis is seen in the lungs which are otherwise clear. Soft Tissues: Normal. Enhancement: No abnormal enhancement is identified. IMPRESSION: 1. No evidence of arterial occlusion or significant stenosis. 2. There is collapse/severe narrowing of the midportion of the right subclavian stent. This may be p ositional as it occurs between the right clavicle and 1st rib and the arm is overhead. 3. Inadequate opacification of the veins to assess for evidence of thrombus. RADIATION DOSE DELIVERED: 337.93mGy.cm Total DLP 337.93mGy.cm Total DLP DATA REPOSITORY: All CT scans at this facility are submitted to the National Radiology Data Registry (NRDR) Dose Index Registry (DIR) with the [employer] ([employer]). RADIATION OPTIMIZATION: All CT scans at this facility use at least one of these dose optimization te chniques: automated exposure control; mA and/or kV adjustment per patient size (includes targeted exa ms where dose is matched to clinical indication); or iterative reconstruction.
[2023-01-02] MEDS: Normal Saline 500 ML IV (12:20)
[2023-01-02 12:31] LABS: HCT 44.9 % (36.0-46.0); HGB 15.8 g/dL (11.2-15.7); MCH 31.2 pg (27.0-33.0); MCHC 35.2 % (32.0-36.0); MCV 89 fL (80-95); MPV 10.4 fL (8.0-11.0); Platelet Count 223 10^3/uL (130-400); RBC 5.07 10^6/uL (3.93-5.22); RDW 12.3 % (11.7-14.6); RDW-SD 39.6 fL; WBC 6.15 10^3/uL (4.4-10.8)
[2023-01-02] MEDS: Lidocaine 5% Patch 1 PATCH TP (12:37)
--- NOTE | 2023-01-02 12:40 | NUR.NOTE ---
Nursing Note: PIV placed in left AC, 18-gauge. Pt stated, that was the best IV I have ever had, they always have a lot of trouble with my veins. Pt thanked this nurse for thorough update and care. Pt has warm blankets and call light.
[2023-01-02 12:54] LABS: BUN 18 mg/dL (7-18); CREATININE 0.8 mg/dL (0.55-1.02); Calcium 9.4 mg/dL (8.5-10.1); Chloride 105 mmol/L (98-107); Glucose 114 mg/dL (74-106); Potassium 4.1 mmol/L (3.5-5.1); Sodium 138 mmol/L (136-145)
[2023-01-02 12:58] LABS: Acetaminophen 29 ug/mL (10-30)
[2023-01-02] MEDS: Normal Saline - Diluent 50 ML VIAL IV (13:45)
[2023-01-02] MEDS: Omnipaque 350 MG/ML 100 ML BTL IJ (13:45)
--- NOTE | 2023-01-02 14:38 | DI.VRAD_ITS ---
PROCEDURE INFORMATION: Exam: CTA Right Upper Extremity With Contrast Exam date and time: 01/02/2023 1:34 PM Age: 52 years old Clinical indication: Other: HX subclavian dvt, similar pain; Patient HX: Stent placed previously TECHNIQUE: Imaging protocol: Computed tomographic angiography of the right upper extremity with contrast, including non-contrast images if performed. 3D rendering (Not supervised by radiologist): MIP and/or 3D reconstructed images were created by the technologist. Contrast material: OMNIPAQUE 350; Contrast volume: 100 ml; Contrast route: INTRAVENOUS (IV); COMPARISON: CR XR SHOULDER RT COMPLETE 2+V 01/01/2023 5:09 PM FINDINGS: Right subclavian artery: No acute findings. No occlusion or significant stenosis. Axillary artery: No acute findings. No occlusion or significant stenosis. Brachial artery: No acute findings. No occlusion or significant stenosis. Radial artery: No acute findings. No occlusion or significant stenosis. Ulnar artery: No acute findings. No occlusion or significant stenosis. Veins: Stent is noted within the right subclavian vein. The distal portion of the stent is collapsed between the right clavicle and 1st rib. No obvious filling defect within the vein. Lungs: The visualized lung is clear. Soft tissues: Unremarkable. IMPRESSION: 1. No hemodynamically significant stenosis or other acute arterial findings. 2. Right subclavian vein stent. The distal portion of the stent is collapsed between the right clavicle and right 1st rib. This may be due to positioning of the arm over head. Dictated and Authenticated by: Ilia Vo MD. Ordering:SILVANO Galdamez MD
--- NOTE | 2023-01-02 15:07 | NUR.NOTE ---
Nursing Note: Pt thoroughly updated with care. Pt displays flat affect and shifting mood towards care. Pt thanked this nurse for care but seems frustrated with length of stay. Pt stated, I can only sit upright, then layed down with pillow and blanket. Pt now intermittently resting and in no signs of distress. Pt able to move right arm and allowed BP readings from right arm. Pt continues to be unable to find transportation home. Provider updated.
[2023-01-02 15:21] VITALS: BP 133/70; PULSE 60; RESP 18; O2SAT 99
--- NOTE | 2023-01-02 15:33 | NUR.NOTE ---
Nursing Note: Pt updated by this RN and provider team. Pt remains unable to find ride home. Pt now stated, I just want to go home, since no one is doing anything for me.
--- NOTE | 2023-01-02 16:08 | NUR.NOTE ---
Nursing Note: Pt signed out AMA. Pt stated, it was not you. Pt frustrated with lack of stronger pain medication during care.
== END 2023-01-02 15:52 | disposition left against medical advice (07) ==
PROVIDERS: Emergency Provider Physician Assistant; PCP Nurse Practitioner Family
DX: S29.9XXA Unspecified injury of thorax, initial encounter; M25.511 Pain in right shoulder; X50.9XXA Other and unspecified overexertion or strenuous movements or postures, initial encounter; Z53.29 Procedure and treatment not carried out because of patient's decision for other reasons; Z95.820 Peripheral vascular angioplasty status with implants and grafts
CPT/HCPCS: 73206; 80048; 85027; 99285; 80329; 99284; J3490

== ENCOUNTER 2023-01-03 20:20 | Emergency (ER) | payer MEDICAID, SELFPAY ==
[2023-01-03 20:24] VITALS: BP 157/83; PULSE 97; RESP 18; TEMP 36.3; O2SAT 100
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
[2023-01-03] MEDS: Diclofenac 1% Gel 100 GM TUBE TP (21:44)
[2023-01-03] MEDS: Ketorolac 30 MG/ML VIAL IM (21:44)
[2023-01-03] MEDS: HYDROcodone 5/Acetaminophen 325 TAB PO (21:45)
[2023-01-03] MEDS: Lidocaine 5% Patch 1 PATCH TP (21:45)
--- NOTE | 2023-01-03 23:09 | NUR.NOTE ---
Referral to Care Management to refer patient to physical therapy [facility] for severe upper back and neck pain.Nursing Note:
== END 2023-01-03 21:55 | disposition home or self-care (01) ==
PROVIDERS: Emergency Provider Student in an Organized Health Care Education/Training Program; PCP Nurse Practitioner Family
DX: S46.811A Strain of other muscles, fascia and tendons at shoulder and upper arm level, right arm, initial encounter (principal); X58.XXXA Exposure to other specified factors, initial encounter
CPT/HCPCS: 96372; 99284; J1885

== ENCOUNTER 2023-01-05 11:25 | Emergency (ER) | payer MEDICAID, SELFPAY ==
[2023-01-05 11:29] VITALS: BP 187/104; PULSE 105; RESP 18; TEMP 36.6; O2SAT 98
[2023-01-05] MEDS: diazePAM 5 MG TAB 10 MG PO (13:31)
[2023-01-05] MEDS: Dexamethasone 4 MG TAB 8 MG PO (13:31)
[2023-01-05] MEDS: oxyCODONE 5 mg/Acetaminophen 325 mg TAB 1 TAB PO (13:31)
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
[2023-01-05 15:18] VITALS: BP 175/93; PULSE 72; RESP 16; O2SAT 98
== END 2023-01-05 15:21 | disposition home or self-care (01) ==
PROVIDERS: Emergency Provider Emergency Medicine; PCP Nurse Practitioner Family
DX: M54.12 Radiculopathy, cervical region (principal)
CPT/HCPCS: 99283; J8540

== ENCOUNTER → 2023-09-01 01:07 | Outpatient (CLI) | payer MEDICAID, SELFPAY ==
--- NOTE | 2023-09-01 11:44 | DI.MAMMO_ITS ---
Exam(s) MAMMO SCREENING EXAM: MAMMO SCREENING CLINICAL HISTORY: screening,z12.39. TECHNIQUE: Bilateral full field digital CC and MLO mammographic images were obtained with 3D tomosyn thesis and utilizing computer aided detection (CAD). COMPARISON: None FINDINGS: There are no spiculated masses. A few benign-appearing microcalcifications are noted in the right breast. There are no malignant-appearing microcalcification groups. There is no significant architectural distortion nor skin thickening-retraction. IMPRESSION: Benign findings. No radiographic evidence of malignancy. BI-RADS Category 1 - Negative Breast Density - Category B - Scattered areas of fibroglandular density Breast density Category C or D implies that the patient has dense breast tissue. Dense breast tissue can make it harder to find cancer on a mammogram. Dense breast tissue is also associated with an incr eased risk of breast cancer. This information about the result of the mammogram report was provided to the patient to raise their awareness. Use this report when you speak with the patient about their risks for breast cancer, which includes their family history. At that time, you may recommend additional screening tests (Ultrasoun d or MRI) as these tests may add significant information. A negative radiographic report should not delay biopsy if a dominant or clinically suspicious mass is present. Up to ten percent of cancers are not identified on mammography. A negative report may reinforce clinical impression. Adenosis and dense breasts may obscure an underlying neoplasm. False positive reports average 6 to 10%. Patient will receive a letter notifying them of these results.
--- NOTE | 2023-09-01 11:52 | DI.CTLCSR_ITS ---
Exam(s) CT CHEST LUNG CANCER SCREEN EXAM: CT CHEST LUNG CANCER SCREEN CLINICAL HISTORY: Screening for lung cancer,former smoker, Z87.891. TECHNIQUE: Imaging Protocol: Low Dose Technique CONTRAST MATERIAL: None COMPARISON: CT CT ABDOMEN PELVIS CTA from 12/16/2020 CR XR CHEST 2V PA LATERAL from 07/06/[address] NECK CHEST W from 07/31/2022 FINDINGS: CHEST: LUNGS: There is platelike atelectasis in the lingular segment of the left lung. No other left lung f indings.. There is a 3 millimeter nodule in medial aspect of the right upper lobe behind the origin of the righ t mainstem bronchus. There is also a small nodular infiltrate measuring 3-4 millimeters in the media l aspect of the right lower lobe. There are no pleural effusions. No focal findings in the trachea and mainstem bronchi. No bronchiectasis. MEDIASTINUM: There is no obvious hilar nor mediastinal adenopathy. CARDIAC: Heart size is normal. There is no pericardial effusion.Caliber of the thoracic aorta is wit hin normal limits. OTHER: Fusion plate in the lower cervical spine noted and there is also an endovascular stent evident in medial aspect of the right subclavian vein. OSSEOUS: No significant osseous lesions.. IMPRESSION: 1. There are 2 small right-sided nodular densities measuring 3-4 mm. Recommend follow-up CT scan in 6 months. 2. Platelike atelectasis in the lingular segment of the left lung noted. No confluent infiltrates no r pleural effusions nor intrathoracic adenopathy. 3. Lung RADS Cat 3 - Probably Benign: Probably benign finding(s) - short term follow-up suggested; in clude nodules with a low likelihood of becoming a clinically active cancer. Lung-RADS 1.0 CATEGORIES: Category 0 - Prior chest CT exam(s) being located for comparison. Category 1 - Annual screening in 12 months. No nodules or definitely benign nodules. Category 2 - Annual screening in 12 months. Benign appearance. Nodules with low likelihood of becomin g active cancer. Category 3 - 6-month follow-up. Probably benign. Short-term follow-up suggested. Nodules with low lik elihood of becoming active cancer. Category 4A - 3-month follow-up and CT/PET if >8 mm in size. Suspicious finding. Findings which requi re additional testing. Category 4B - Findings which require additional testing and tissue sampling. Category 4X - Category 3 or 4 nodules with additional features or imaging findings that increases the suspicion of malignancy. Modifier S- Potentially clinically significant findings (non lung cancer) RADIATION DOSE DELIVERED: 70.35mGy.cm Total DLP DATA REPOSITORY: All CT scans at this facility are submitted to the National Radiology Data Registry (NRDR) Dose Index Registry (DIR) with the [employer] ([employer]). RADIATION OPTIMIZATION: All CT scans at this facility use at least one of these dose optimization te chniques: automated exposure control; mA and/or kV adjustment per patient size (includes targeted exa ms where dose is matched to clinical indication); or iterative reconstruction.
== END ==
PROVIDERS: PCP Family Medicine; Visit Provider Family Medicine
DX: Z87.891 Personal history of nicotine dependence (principal); Z12.31 Encounter for screening mammogram for malignant neoplasm of breast; Z12.2 Encounter for screening for malignant neoplasm of respiratory organs; R91.8 Other nonspecific abnormal finding of lung field
CPT/HCPCS: 71271; 77063; 77067

== ENCOUNTER 2023-09-01 02:42 | Outpatient (CLI) | payer MEDICAID, SELFPAY ==
[2023-09-01 11:52] LABS: Anion Gap 10.3 mmol/L (3-11); BUN 14 mg/dL (7-18); CO2 25.7 mmol/L (21.0-32.0); CREATININE 0.9 mg/dL (0.55-1.02); Calcium 9.4 mg/dL (8.5-10.1); Chloride 106 mmol/L (98-107); Estimated GFR 76.92 (mL/min/1.73m2); Ferritin 131 ng/mL (8-252); Glucose 116 mg/dL (74-106); Potassium 4.1 mmol/L (3.5-5.1); Sodium 142 mmol/L (136-145)
[2023-09-01 13:50] LABS: Calculated LDL 127 mg/dL (<100); Cholesterol 198 mg/dL (<200); HDL Cholesterol 57 mg/dL (40-60); Triglyceride 73 mg/dL (<150)
[2023-09-01 19:18] LABS: Hepatitis C Ab w Rflx HCV PCR Negative (Negative)
[2023-09-01 19:31] LABS: HIV-1/2 Ag & Ab Screen Negative (Negative)
== END 2023-09-01 02:43 | disposition home or self-care (01) ==
LOC: LBO 02:42
PROVIDERS: PCP Family Medicine; Visit Provider Family Medicine
DX: Z11.4 Encounter for screening for human immunodeficiency virus [HIV] (principal); Z13.1 Encounter for screening for diabetes mellitus; Z13.6 Encounter for screening for cardiovascular disorders; Z11.59 Encounter for screening for other viral diseases; L60.3 Nail dystrophy
CPT/HCPCS: 36415; 80048; 80061; 86803; 87389; 82728

== ENCOUNTER 2023-09-28 10:35 | Emergency (ER) | payer MEDICAID, SELFPAY ==
[2023-09-28] VITALS (33 sets, daily range): BP systolic 103–143; BP diastolic 49–102; PULSE 59–84; RESP 11–24; TEMP 36.5–36.8; O2SAT 95–100
--- NOTE | 2023-09-28 10:45 | RT.EKG_ITS ---
APPROVED REPORT Exam: Resting ECG Reason for Exam: Patient Location: E HR:66 bpm ECG Measurements Heart Rate 66 AXIS SD 141 P 58 QRSd 84 QRS 66 QT 391 T 44 QTc 411 Conclusion Sinus rhythm...normal P axis, V-rate 60- 99 sinus rhtyhm, normal axis, normal intrervals, non ischemic
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
[2023-09-28] MEDS: Aspirin 81 MG CHEW 324 MG CH (11:23)
[2023-09-28] MEDS: nitroGLYcerin 0.4 MG TAB SL (11:24)
[2023-09-28] MEDS: Normal Saline 500 ML IV (11:24)
[2023-09-28 11:27] LABS: Abs Immature Grans 0.01 10^3/uL (0.0-0.06); Absolute Basophil Count 0.02 10^3/uL (0.0-0.2); Absolute Eosinophil Count 0.09 10^3/uL (0.0-0.7); Absolute Lymphocyte Count 1.84 10^3/uL (1.2-3.4); Absolute Monocyte Count 0.37 10^3/uL (0.1-0.8); Absolute Neutrophil Count 3.53 10^3/uL (1.2-6.7); Basophils % 0.3; Eosinophils % 1.5; HCT 41.4 % (36.0-46.0); HGB 14.2 g/dL (11.2-15.7); Immature Grans % 0.2; Lymphocytes % 31.4; MCH 30.6 pg (27.0-33.0); MCHC 34.3 % (32.0-36.0); MCV 89 fL (80-95); MPV 10.5 fL (8.0-11.0); Monocytes % 6.3; Neutrophils % 60.3; Platelet Count 211 10^3/uL (130-400); RBC 4.64 10^6/uL (3.93-5.22); RDW 12.3 % (11.7-14.6); RDW-SD 40.1 fL; WBC 5.86 10^3/uL (4.4-10.8)
[2023-09-28 11:48] LABS: ALT 18 U/L (14-59); AST 16 U/L (15-37); Albumin 3.8 g/dL (3.4-5.0); Alkaline Phosphatase 92 U/L (46-116); Anion Gap 9.4 mmol/L (3-11); BUN 12 mg/dL (7-18); Bilirubin, Total 0.4 mg/dL (0.2-1.0); CO2 24.6 mmol/L (21.0-32.0); CREATININE 0.9 mg/dL (0.55-1.02); Calcium 9.4 mg/dL (8.5-10.1); Chloride 103 mmol/L (98-107); Estimated GFR 76.92 (mL/min/1.73m2); Glucose 105 mg/dL (74-106); Lipase 36 U/L (16-77); Magnesium 2.1 mg/dL (1.8-2.4); NT-proBNP 76 pg/mL (<300); Potassium 4.2 mmol/L (3.5-5.1); Sodium 137 mmol/L (136-145); Total Protein 7.7 g/dL (6.4-8.2)
[2023-09-28 11:49] LABS: Troponin I < 50 ng/L (< or =60)
--- NOTE | 2023-09-28 12:00 | DI.RAD_ITS ---
Exam(s) XR CHEST 2V PA LATERAL EXAM: XR CHEST 2V PA LATERAL CLINICAL HISTORY: chest pain TECHNIQUE: 2D digital imaging was performed of the chest. Two images were obtained. PA and lateral views were obtained. COMPARISON: CR,XR XR PORTABLE CHEST AP from 08/27/2019 CR XR CHEST 2V PA LATERAL from 07/06/2022 FINDINGS: MEDIASTINUM: Normal. HEART: Normal. PULMONARY VASCULATURE: Normal. LUNGS: Clear. PLEURAL SPACE: No pleural effusion or pneumothorax. BONE:Within normal limits for the patient's age. The patient is status post anterior cervical disc f usion. OTHER FINDINGS:A right-sided vascular stent is again seen. IMPRESSION: No acute pulmonary findings. DATA REPOSITORY: RADIATION DOSE DELIVERED:
[2023-09-28 12:01] LABS: D-Dimer 353 ng/mlFEU (<500)
[2023-09-28 14:47] LABS: Troponin I < 50 ng/L (< or =60)
[2023-09-28] MEDS: ACETAMINOPHEN 1,000 MG/100 ML BTL 400 MG IVPB (14:58)
[2023-09-28] MEDS: Pantoprazole 40 MG VIAL IVP (14:59)
[2023-09-28] MEDS: Simethicone/Sod Bicarb/Cit Ac, 4 gram PACKET 1 PACKET PO (14:59)
== END 2023-09-28 15:33 | disposition home or self-care (01) ==
PROVIDERS: Emergency Provider Physician Assistant; PCP Family Medicine
DX: R07.9 Chest pain, unspecified (principal); E78.5 Hyperlipidemia, unspecified; R61 Generalized hyperhidrosis; Z78.1 Physical restraint status; Z87.891 Personal history of nicotine dependence
CPT/HCPCS: 36415; 80053; 83690; 93005; 96361; 96374; 96375; 99285; 71046; 83735; 83880; 84484; 85025; 85379; 93010; 99284; J0131; J2470